=== PATIENT | female | born 1995 | race Caucasian/White ===

== ENCOUNTER → 2018-02-04 | Outpatient (CLI) | payer OTHER ==
--- NOTE | 2018-02-04 17:29 | Diagnostic Imaging Report ---
INDICATION: survey. TECHNIQUE: Multiple real-time grayscale images were obtained over the gravid uterus. COMPARISON: None. FINDINGS: There is a single live fetus in a transverse presentation. Placenta is posterior and low lying. The placenta appears to be in close proximity to the internal cervical os, suggestive of previa. Cervical length is 4.6 cm. Amniotic fluid volume is normal. heart rate is recorded at 149 beats per minute. survey demonstrates kidneys, bladder, and stomach to be unremarkable. brain is unremarkable. There is a three-vessel cord with normal cord insertion. Four-chamber heart view as well as spine are not well seen on today's study, perhaps owing to position. Biometrical measurements are as follows: Biparietal 4.66 cm, age 20 weeks 1 days. Head circumference 17.81 cm, age 20 weeks 2 days. Abdominal circumference 14.98 cm, age 20 weeks 2 days. Femur length 3.15 cm, age 19 weeks 6 days. Sonographic estimate age: 20 weeks 1 days. Sonographic estimated date of delivery: 06/23/18. Estimated Weight: 329 gm (+/- 48 gm). LMP percentile: 48%. heart rate: 149 beats per minute. number: 1 of 1. IMPRESSION: Single live IUP at approximately 20 weeks gestational age with estimated date of confinement sonographically of 06/23/2018. Four-chamber heart view and spine are not well visualized due to position. Followup is recommended. In addition, there are findings consistent with placenta previa and followup would be recommended at that time as well. Dictated by: Dictated on workstation # [id number]
== END ==
LOC: RAD 15:58
PROVIDERS: ATTEND Obstetrics & Gynecology
DX: Z36.89 Encounter for other specified antenatal screening (principal); Z3A.20 20 weeks gestation of pregnancy
CPT/HCPCS: 76805

== ENCOUNTER 2018-03-13 00:55 | Inpatient (IN) | payer OTHER ==
[~2018-03-13] VITALS: Ht 170.2 cm; Wt 78.5 kg
[2018-03-13] MEDS ORDERED: PREN1TAB79 PO (01:14)
[2018-03-13] MEDS ORDERED: D5 LR IV SOLUTION 1,000 ML IV ONE (01:15)
[2018-03-13] MEDS ORDERED: BETAMETHASONE ACE/NA PHOS 6 MG/ML (CELESTONE SOLUSPAN) ONE (01:15)
[2018-03-13] MEDS: D5 1/2 NS 1000 ML IV SOLUTION 1,000 ML IV SCH ×2 (01:20→08:51)
[2018-03-13 01:30] VITALS: BP 177/93
[2018-03-13] MEDS ORDERED: BETAMETHASONE ACE/NA PHOS 6 MG/ML (CELESTONE SOLUSPAN) IM SCH (01:30)
[2018-03-13] MEDS ORDERED: LACTATED RINGERS 2,000 ML IV ONE (01:35)
[2018-03-13] MEDS ORDERED: CITRIC ACID/SOB CIT (BICITRA) 30 ML UDC ONE (01:35)
[2018-03-13] MEDS ORDERED: METOCLOPRAMIDE INJ 10 MG/2 ML (REGLAN) ONE (01:35)
[2018-03-13] MEDS ORDERED: FAMOTIDINE 20MG/2ML IV (PEPCID) ONE (01:36)
[2018-03-13 01:40] LABS: BASOPHILS % (AUTO) 0 % (0-10); EOSINOPHILS # (AUTO) 0.2 10^3/uL (0.0-0.3); EOSINOPHILS % (AUTO) 1 % (0-10); HEMATOCRIT 33 % (35-52); HEMOGLOBIN 11.4 G/DL (11.5-16.0); LYMPHOCYTES # (AUTO) 3.2 X 10^3 (1.0-4.0); LYMPHOCYTES % (AUTO) 22 % (12-44); MEAN CORPUSCULAR HEMOGLOBIN 28 PG (25-34); MEAN CORPUSCULAR HGB CONC 34 G/DL (32-36); MEAN CORPUSCULAR VOLUME 82 FL (80-99); MEAN PLATELET VOLUME 10.1 FL (7.4-10.4); MONOCYTES # (AUTO) 1.2 X 10^3 (0.0-1.0); MONOCYTES % (AUTO) 8 % (0-12); NEUTROPHILS # (AUTO) 9.8 X 10^3 (1.8-7.8); NEUTROPHILS % (AUTO) 68 % (42-75); PLATELET COUNT 270 10^3/uL (130-400); RED BLOOD COUNT 4.06 10^6/uL (4.35-5.85); RED CELL DISTRIBUTION WIDTH 12.9 % (10.0-14.5); WHITE BLOOD COUNT 14.4 10^3/uL (4.3-11.0)
[2018-03-13] MEDS ORDERED: ceFAZolin 1,000 MG/10 ML (ANCEF) VIAL ONE (01:40)
[2018-03-13] MEDS ORDERED: NS (IVPB) 50 ML ONE (01:41)
--- OUTSIDE RECORDS SUMMARY | 2018-03-13 01:50 | XMS REPORT | Continuity of Care Document ---
Author Author [facility] Organization [facility] Address Unknown Phone Unavailable Allergies Active Description Code Type Severity Reaction Onset Reported/Identified Relationship to Patient Clinical Status Yes NO KNOWN DRUG ALLERGIES UNKNOWN NO KNOWN DRUG ALLERG Yes No Known Drug Allergies [id number] Drug Allergy Unknown N/A 03/13/2018 Medications There is no data. Problems Date Dx Coded Attending Type Code Diagnosis Diagnosed By 11/01/2017 Lance Velásquez 640.93 UNSPECIFIED HEMORRHAGE IN EARLY , ANTEPARTUM CONDITION OR COMPLICATION 11/01/2017 Lance Velásquez O20.9 HEMORRHAGE IN EARLY , UNSPECIFIED 02/03/2018 JYOTSNA NIELSON APRN Ot 785.2 CARDIAC MURMURS NEC 02/05/2018 KENJI CUMMINS DO Ot Z36.89 ENCOUNTER FOR OTHER SPECIFIED 02/05/2018 KENJI CUMMINS DO Ot Z3A.20 20 WEEKS GESTATION OF 02/23/2018 KENJI CUMMINS DO Ot Z36.89 ENCOUNTER FOR OTHER SPECIFIED 02/23/2018 KENJI CUMMINS DO Ot Z3A.20 20 WEEKS GESTATION OF Procedures There is no data. Results Test Result Range Urinalysis - 10/31/17 23:50 Icotest N/A Negative Urine Volume Urine Volume Sufficient (10mL) Urine-Appearance Slightly Cloudy Clear Urine-Bacteria Rare Urine-Bilirubin Negative Negative Urine-Blood 2+ Negative Urine-Color Yellow Colorless-Lt. Yellow Urine-Epithelial Cells 5-10/HPF Urine-Glucose Negative Negative Urine-Ketones Negative Negative Urine-Leukocytes 1+ Negative Urine-Nitrite Negative Negative Urine-Other Urine Saved if Culture Needed (48hrs from time of collection) Urine-pH 6.0 5-8.5 Urine-Protein Negative Negative Urine-RBC 0-3/HPF Urine-Specific [place] <=1.005 1.000-1.030 Urine-WBC 5-10/HPF Urobilinogen 0.2 0.2-1.0 Beta HCG - 11/01/17 00:15 Beta HCG 75214 mIU/mL 5-25 Complete blood count (CBC) with automated white blood cell (WBC) differential - 03/13/18 01:25 Blood leukocytes automated count (number/volume) 14.4 10*3/uL 4.3-11.0 Blood erythrocytes automated count (number/volume) 4.06 10*6/uL 4.35-5.85 Venous blood hemoglobin measurement (mass/volume) 11.4 g/dL 11.5-16.0 Blood hematocrit (volume fraction) 33 % 35-52 Automated erythrocyte mean corpuscular volume 82 [foz_us] 80-99 Automated erythrocyte mean corpuscular hemoglobin (mass per erythrocyte) 28 pg 25-34 Automated erythrocyte mean corpuscular hemoglobin concentration measurement ( mass/volume) 34 g/dL 32-36 Automated erythrocyte distribution width ratio 12.9 % 10.0-14.5 Automated blood platelet count (count/volume) 270 10*3/uL 130-400 Automated blood platelet mean volume measurement 10.1 [foz_us] 7.4-10.4 Automated blood neutrophils/100 leukocytes 68 % 42-75 Automated blood lymphocytes/100 leukocytes 22 % 12-44 Blood monocytes/100 leukocytes 8 % 0-12 Automated blood eosinophils/100 leukocytes 1 % 0-10 Automated blood basophils/100 leukocytes 0 % 0-10 Blood neutrophils automated count (number/volume) 9.8 10*3 1.8-7.8 Blood lymphocytes automated count (number/volume) 3.2 10*3 1.0-4.0 Blood monocytes automated count (number/volume) 1.2 10*3 0.0-1.0 Automated eosinophil count 0.2 10*3/uL 0.0-0.3 Automated blood basophil count (count/volume) 0.0 10*3/uL 0.0-0.1 Encounters ACCT No. Visit Date/Time Discharge Status Pt. Type Provider Facility Loc./Unit Complaint [id number] 02/04/2018 15:58:00 02/04/2018 23:59:59 CLS Outpatient KENJI CUMMINS DO [facility] RAD Z3A.18 18 WEEKS GESTATION [id number] 10/20/2012 14:36:00 10/20/2012 23:59:59 CLS Outpatient JYOTSNA NIELSON APRN [facility] CARD HEART MURMUR [id number] 03/13/2018 01:47:00 ACT Inpatient SHIRA STEIN DO [facility] LDRP LOSS OF FLUIDS,PREMATURE OF BABY [id number] 02/04/2017 09:55:00 02/04/2017 23:59:59 [facility] [id number] 10/31/2017 23:38:00 11/01/2017 01:33:00 DIS Outpatient [facility] ER
--- NOTE | 2018-03-13 01:54 | History & Physical-OB ---
OB - Chief Complaint & HPI Date/Time Date of Admission: Date of Admission: 03/13/2018 Date seen by a Provider: Mar 13, 2018 Time Seen by a Provider: 01:35 Chief Complaint/History OB-Reason for Admission/Chief: Rupture of Membranes Hx : 1 Hx Para: 0 Expected Date of Delivery: Jun 24, 2018 Gestational Age in Weeks: 25 Gestational Age in Days: 2 Other reason for admission: This 22 yo female is a patient of my partner Dr. Lugo, who has had an uncomplicated until this point. Reports having a stomach ache around 11pm, went to restroom, and heard a pop with a gush of fluid followed by profuse bleeding. She was scanned with US bedside and found to have a breech presentation by an assumed male infant. SVE and SSE performed found a dialated cervix to 4 cm with footling palpated by not prolapsed from the cervix. Called OR crew for emergency as well as [facility] unit for transfer at . Admission Nurse Assessment Rev: Yes History of Labs O pos Antibody neg RI RPR NR HBsAg NR HIV NR GC neg GBS unknown Allergies and Home Medications Allergies Coded Allergies: No Known Drug Allergies (Unverified , 03/13/18) Home Medications Vit W-Ca,Fe,FA(<1 mg) 1 Each Tablet, 1 EACH PO DAILY, (Reported) Patient Home Medication List Home Medication List Reviewed: Yes OB - History Hx of Present Care: Yes Ultrasounds: Normal mid trimester US Obstetrical Complications: None Medical Complications: None Patient Past Medical History n/a Social History/Family History Recent Infectious Disease Expo: No OB - Admission Exam Physical Exam HEENT: NCAT Heart: Rhythm Normal Lungs: Clear Abdomen: Gravid Extremities: Normal Reflexes: Normal Cervical Dilatation: 4cm Effacement: 100% Station: -1 Membranes: Ruptured Amniotic Fluid: Other (bloody) Heart Rate: 150's Decelerations: Variable Decelerations Short Term Variability: Present Fpc Variability: Minimal (3-5) Contractions on Admission: >10 Minutes Apart Intensity: Mild Labs Laboratory Tests Test 03/13/18 01:25 Range/Units White Blood Count 14.4 H 4.3-11.0 10^3/uL Red Blood Count 4.06 L 4.35-5.85 10^6/uL Hemoglobin 11.4 L 11.5-16.0 G/DL Hematocrit 33 L 35-52 % Mean Corpuscular Volume 82 80-99 FL Mean Corpuscular Hemoglobin 28 25-34 PG Mean Corpuscular Hemoglobin Concent 34 32-36 G/DL Red Cell Distribution Width 12.9 10.0-14.5 % Platelet Count 270 130-400 10^3/uL Mean Platelet Volume 10.1 7.4-10.4 FL Neutrophils (%) (Auto) 68 42-75 % Lymphocytes (%) (Auto) 22 12-44 % Monocytes (%) (Auto) 8 0-12 % Eosinophils (%) (Auto) 1 0-10 % Basophils (%) (Auto) 0 0-10 % Neutrophils # (Auto) 9.8 H 1.8-7.8 X 10^3 Lymphocytes # (Auto) 3.2 1.0-4.0 X 10^3 Monocytes # (Auto) 1.2 H 0.0-1.0 X 10^3 Eosinophils # (Auto) 0.2 0.0-0.3 10^3/uL Basophils # (Auto) 0.0 0.0-0.1 10^3/uL OB - Assessment/Plan/Diagnosis Assessment Assessment: labor Admission Dx 22 yo @ 25.2 Breech presentation Premature ROM Placental Abruption Advanced cervical dilatation Admission Status: Inpatient Order (span 2 midnights) Reason for Inpatient Admission: 22 yo @ 25.2 Breech presentation Premature ROM Placental Abruption Advanced cervical dilatation Plan Plan: Section Other Plan Primary classical section SHIRA STEIN DO Mar 13, 2018 1:54 am
[2018-03-13] MEDS ORDERED: fentaNYL INJECTION 100 MCG/2 ML AMP ONE (02:02)
[2018-03-13] MEDS ORDERED: morphine INJ 10 MG/ML 1ML (SYR OR VIAL) ONE (02:18)
[2018-03-13] MEDS ORDERED: HYDROmorphone 2 MG/ML VIAL (DILAUDID) ONE (02:19)
[2018-03-13] MEDS ORDERED: LACTATED RINGERS 1,000 ML IV ONE (02:21)
[2018-03-13] MEDS ORDERED: proPOfol 200 MG/20 ML (DIPRIVAN) VIAL IV ONE (02:21)
[2018-03-13] MEDS ORDERED: SEVOFLURANE (ULTANE) 15 ML INHAL SOLN ONE ×2 (02:21→03:00)
[2018-03-13] MEDS ORDERED: OXYTOCIN/NORMAL SALINE 500 ML IV ONE ×2 (02:21→02:28)
[2018-03-13] MEDS ORDERED: LIDOCAINE PF 2% 5 ML (XYLOCAINE) VIAL ONE (02:21)
[2018-03-13] MEDS ORDERED: KETOROLAC 30 MG/ML VIAL ONE (02:23)
[2018-03-13] MEDS ORDERED: HYDROmorphone 2 MG/ML VIAL (DILAUDID) IV ONE (02:30)
[2018-03-13] MEDS ORDERED: ONDANSETRON 4 MG/2 ML (SDV) Z0FRAN IVP PRN (02:30)
[2018-03-13] MEDS ORDERED: morphine INJ 10 MG/ML 1ML (SYR OR VIAL) IVP ONE (02:30)
[2018-03-13] MEDS ORDERED: MEPERIDINE (DEMEROL) INJ 50 MG/ML IVP ONE (02:30)
[2018-03-13] MEDS ORDERED: OXYTOCIN/NORMAL SALINE 500 ML IV SCH (03:09)
--- NOTE | 2018-03-13 03:12 | Discharge Inst-Women's Service ---
Discharge Inst-Women's Serv Depart Medication/Instructions New, Converted or Re-Newed RX: RX on Chart Consults/Follow Up Additional Follow Up: Yes Orders/Referrals Dr. Agarwal in 7-10 days, Dr. Lugo in 6 weeks Activity Activity: Activity as Tolerated Driving Instructions: No Driving for 1 Week NO SMOKING: NO SMOKING Nothing Inside Vagina: No Douching, No [place], No Tampons Diet Discharge Diet: No Restrictions Symptoms to Report to : Bleeding Excessive, Pain Increased, Fever Over 101 Degrees F, Vaginal Bleeding Increase, Questions/Concerns For Any Problems or Questions: Contact Your Physician Skin/Wound Care Infection Signs and Symptoms: Increased Redness, Foul Odor of Wound, Increased Drainage, Skin Itchy or Has a Rash, Increased Swelling, Temperature Above 101 F Operative Area Clean and Dry: Keep Incision Clean/Dry Stitches/[place]/Dermabond: Dermabond, Care of Stitches Bathing Instructions: SHIRA Perez DO Mar 13, 2018 3:12 am
[2018-03-13] MEDS ORDERED: IBUP-844 PO (03:13)
[2018-03-13] MEDS ORDERED: DOCU100C37 PO (03:13)
[2018-03-13] MEDS ORDERED: ACHD5005 PO (03:13)
[2018-03-13] MEDS: KETOROLAC 30 MG/ML VIAL IVP SCH ×4 (03:15→21:06)
[2018-03-13] MEDS ORDERED: TETANUS,DIPTH,PERTUSS P/F (BOOSTRIX) 0.5 ML VIAL IM SCH (03:15)
[2018-03-13] MEDS ORDERED: MEASLES,MUMPS,RUBELLA 1 EA INJ SC SCH (03:15)
[2018-03-13] MEDS ORDERED: HYDROmorphone 2 MG/ML VIAL (DILAUDID) IV PRN (03:15)
[2018-03-13 04:23] VITALS: BP 136/84
[2018-03-13] MEDS: HYDROcodone/APAP 5 MG/325 MG (LORTAB) TAB PO PRN ×4 (04:23→19:43)
[2018-03-13] MEDS ORDERED: LACTATED RINGERS 1,000 ML IV PRN (04:26)
[2018-03-13] MEDS ORDERED: CITRIC ACID/SOB CIT (BICITRA) 30 ML UDC PO ONE (04:30)
[2018-03-13] MEDS ORDERED: METOCLOPRAMIDE INJ 10 MG/2 ML (REGLAN) IV ONE (04:30)
--- NOTE | 2018-03-13 04:33 | OPERATIVE REPORT ---
DATE OF SERVICE: PREOPERATIVE DIAGNOSES: 1. A 22-year-old G1, P0, at 25 weeks and 2 days' gestation. 2. Premature rupture of membranes. 3. Suspected placental abruption. 4. Advanced cervical dilatation. 5. Breech presentation. POSTOPERATIVE DIAGNOSES: 1. A 22-year-old G1, P0, at 25 weeks and 2 days' gestation. 2. Premature rupture of membranes. 3. Suspected placental abruption. 4. Advanced cervical dilatation. 5. Breech presentation. PROCEDURE: Primary classical section emergency. SURGEON: David Stein DO ANESTHESIA: General endotracheal. ESTIMATED BLOOD LOSS: 600 mL. URINE OUTPUT: 150 mL, clear at the end of the procedure. FLUIDS: 1200 mL of lactated Ringer's resolution. FINDINGS: Live male infant, weight and Apgars pending. Grossly normal appearing uterus, fallopian tubes and ovaries for gestational age. SPECIMENS SENT: Placenta. INDICATIONS FOR PROCEDURE: This 22-year-old female presented to the hospital via emergency due to heavy amount of bleeding. She reports hearing a pop while trying to pass a bowel movement at home and having a gush of fluid, that gush of fluid was followed by a significant amount of bleeding. She then presented to the hospital with this bleeding, at which point I was notified and presented to the hospital emergently. Scanned via ultrasound for position, which was found to be a footling breech. I also did a sterile speculum examination, which revealed advanced cervical dilatation with significant amounts of bleeding and clots coming from the cervix. On digital examination, she was found to be 4 to 5 cm dilated and foot and buttocks were palpated on digital exam. The patient was not stable for transfer to a higher level of acuity center. Therefore, I discussed with the patient and her family proceeding emergently with delivery. Risks were briefly reviewed and consent was obtained and the patient was taken to the operating room. OPERATIVE REPORT IN DETAIL: Once in the operating room, general anesthesia was found to be adequate. She was placed in the supine position with leftward tilt, prepped and draped in normal sterile fashion. Once she was prepped and draped, anesthesia gives me the okay to proceed. Once she is intubated and an airway was secured, I then make a Pfannenstiel skin incision with a knife and carried this down to the underlying fascia using the knife. The fascial incision extended laterally using traction, which allows me to separate the rectus muscles down the midline using traction. I then identified the peritoneum entered bluntly and extended the incision of the peritoneal opening using blunt traction. An Hiren ring retractor was placed within the peritoneal incision, which offers excellent lateral sidewall retraction. I make a classical incision down the midline of the uterus using the knife until membranes were encountered ,at which point I extended the incision superiorly using bandage scissors. The infant was found in the footling breech presentation and it was elevated up out of the pelvis and brought up onto the operative field where the cord was doubly clamped and cut and was handed off to Dr. Carrington, who was present for delivery. Cord blood was attempted to be collected; however, there is not much blood in the cord noted. A 3-vessel cord with intact placenta was delivered spontaneously thereafter. IV Pitocin was initiated to facilitate uterine contraction. Uterine fundus became firmer by bimanual massage. The uterus was exteriorized and cleared of endometrial clots and debris. I then closed the uterus in three layers. The inner layer was closed using 0 Vicryl suture in a running locked fashion. Second layer was closed using 0 Monocryl in imbricating running suture and the third layer, which reapproximate the serosa is reapproximated using 0 Monocryl in a running fashion, after which there was no active bleeding noted from the uterus or any of my dissection planes. I then placed the uterus back from the pelvis and copiously irrigated the pelvis using normal saline. Once again, there was no active bleeding noted from any of my dissection planes. I placed Interceed antiadhesive over my low transverse incision and proceeded with closing the peritoneum using 3-0 Vicryl suture in an interrupted fashion. Rectus muscle reapproximated using 3-0 Vicryl suture in interrupted fashion. The fascia was reapproximated using 0 Vicryl suture in running fashion. Subcutaneous tissue was reapproximated using 3-0 plain in interrupted subcutaneous stitch. The skin was reapproximated using 4-0 Monocryl in a running subcuticular. Dermabond was applied to incision and sterile dressing with adhesive white tape. The patient tolerated the procedure well and was taken to recovery area in stable condition. Lap and sponge count was correct at the end of the procedure. Instrument counts correct as well. One gram of Ancef given preoperatively for infection prophylaxis. Job ID: [id number] DocumentID: [id number] Dictated Date: 03/13/2018 03:09:14 Inhalation Therapy Aides Teacher Date: 03/13/2018 04:32:33 Dictated By: DAVID STEIN DO
[2018-03-13] MEDS ORDERED: ceFAZolin INJECTION 1,000 MG in NS (IVPB) 50 ML IV ONE (04:45)
[2018-03-13] MEDS ORDERED: FAMOTIDINE 20MG/2ML IV (PEPCID) IVP ONE (04:45)
[2018-03-13] MEDS ORDERED: CATHETER FLUSH 10 ML SYR IV SCH (06:00)
[2018-03-13 06:25] VITALS: BP 135/82
[2018-03-13] MEDS: DOCUSATE SODIUM 100 MG (COLACE) CAP PO SCH ×2 (08:51→19:42)
[2018-03-13 08:54] VITALS: BP 119/72
[2018-03-13 15:07] VITALS: BP 121/73
[2018-03-13 19:45] VITALS: BP 130/73
[2018-03-14] MEDS: HYDROcodone/APAP 5 MG/325 MG (LORTAB) TAB PO PRN ×2 (00:39→09:54)
[2018-03-14 03:06] VITALS: BP 110/59
[2018-03-14] MEDS: IBUPROFEN 600 MG (MOTRIN) TAB PO SCH ×2 (03:06→09:08)
[2018-03-14 05:33] LABS: BASOPHILS % (AUTO) 0 % (0-10); EOSINOPHILS % (AUTO) 0 % (0-10); HEMATOCRIT 23 % (35-52); HEMOGLOBIN 7.5 G/DL (11.5-16.0); LYMPHOCYTES # (AUTO) 2.1 X 10^3 (1.0-4.0); LYMPHOCYTES % (AUTO) 13 % (12-44); MEAN CORPUSCULAR HEMOGLOBIN 28 PG (25-34); MEAN CORPUSCULAR HGB CONC 33 G/DL (32-36); MEAN CORPUSCULAR VOLUME 85 FL (80-99); MEAN PLATELET VOLUME 10.2 FL (7.4-10.4); MONOCYTES # (AUTO) 1.5 X 10^3 (0.0-1.0); MONOCYTES % (AUTO) 9 % (0-12); NEUTROPHILS % (AUTO) 78 % (42-75); PLATELET COUNT 257 10^3/uL (130-400); RED BLOOD COUNT 2.71 10^6/uL (4.35-5.85); RED CELL DISTRIBUTION WIDTH 12.8 % (10.0-14.5); WHITE BLOOD COUNT 16.6 10^3/uL (4.3-11.0)
[2018-03-14] MEDS ORDERED: ceFAZolin INJECTION 1,000 MG in NS (IVPB) 50 ML IV ONE ×2 (08:00→08:45)
--- NOTE | 2018-03-14 08:02 | Postpartum Progress Note ---
Note Note Day # 1 Subjective: Patient is without complaints. Ambulating, voiding. Tolerating a regular diet without nausea or vomiting. Normal lochia. Pain is well controlled with oral pain medications. Denies lightheadedness dizziness on ambulation. She would like to have an expedited dismissal due to at [place] in NICU. Objective: Vital Sign - Last 24 Hours 03/13/18 03/13/18 03/13/18 03/13/18 08:54 15:07 19:45 21:24 Temp 98.0 98.0 99.6 98.6 Pulse 98 111 95 Resp 18 18 18 B/P (MAP) 119/72 (88) 121/73 (89) 130/73 (92) Pulse Ox 98 98 99 O2 Delivery Room Air Room Air 03/14/18 03/14/18 00:40 03:06 Temp 99.1 98.1 Pulse 106 Resp 18 B/P (MAP) 110/59 (76) Pulse Ox 100 O2 Delivery Room Air Intake and Output 03/13/18 03/13/18 03/14/18 15:00 23:00 07:00 Intake Total 600 ml 800 ml Balance 600 ml 800 ml Physical Exam: General - Alert and oriented, no apparent distress Abdomen - Soft, appropriately tender to palpation, non-distended, fundus firm at umbilicus Extremities - no edema, negative Imani's bilaterally Incision- c/d/i Assessment: POD 1 Classical section 25 week delivery Cervical insufficiency Possible placental abruption-path pending Acute blood loss anemia Leukocytosis Plan: Since patient is anxious for dismissal, I am dosing again with Ancef 1 gm due to mild leukocytosis and temp of 99. She was counciled about follow up and planning for future pregnancies. Encourage ambulation. Ferrous sulfate supplementation. Plan for discharge today Vitals - Labs Vital Signs - I&O Vital Signs Date Time Temp Pulse Resp B/P (MAP) Pulse Ox O2 Delivery O2 Flow Rate FiO2 03/14/18 03:06 98.1 106 18 110/59 (76) 100 Room Air 03/14/18 00:40 99.1 03/13/18 21:24 98.6 03/13/18 19:45 99.6 95 18 130/73 (92) 99 Room Air 03/13/18 15:07 98.0 111 18 121/73 (89) 98 Room Air 11/3/18 08:54 98.0 98 18 119/72 (88) 98 I & O 03/14/18 07:00 Intake Total 1400 ml Balance 1400 ml Labs Laboratory Tests 03/14/18 05:18: White Blood Count 16.6H, Red Blood Count 2.71L, Hemoglobin 7.5#L, Hematocrit 23L , Mean Corpuscular Volume 85, Mean Corpuscular Hemoglobin 28, Mean Corpuscular Hemoglobin Concent 33, Red Cell Distribution Width 12.8, Platelet Count 257, Mean Platelet Volume 10.2, Neutrophils (%) (Auto) 78H, Lymphocytes (%) (Auto) 13 , Monocytes (%) (Auto) 9, Eosinophils (%) (Auto) 0, Basophils (%) (Auto) 0, Neutrophils # (Auto) 13.0H, Lymphocytes # (Auto) 2.1, Monocytes # (Auto) 1.5H, Eosinophils # (Auto) 0.0, Basophils # (Auto) 0.0 SHIRA STEIN DO Mar 14, 2018 08:02
[2018-03-14 09:08] VITALS: BP 113/60
[2018-03-14] MEDS: DOCUSATE SODIUM 100 MG (COLACE) CAP PO SCH (09:08)
--- NOTE | 2018-03-14 11:52 | Anesthesia-General Post-Op ---
General Patient Condition Mental Status/LOC: Same as Preop Cardiovascular: Satisfactory Nausea/Vomiting: Absent Respiratory: Satisfactory Pain: Controlled Complications: Absent Post Op Complications Complications None Follow Up Care/Instructions Patient Instructions None needed. Anesthesia/Patient Condition Patient Condition Patient is doing well, no complaints, stable vital signs, no apparent adverse anesthesia problems. No complications reported per nursing. TRINIDAD CHADWICK CRNA Mar 14, 2018 11:52
--- NOTE | 2018-03-17 11:09 | Physician Query-Final Dx ---
JESUS MANUEL MONROE 03/17/18 1108: Final Diagnosis Give Final Diagnosis Please give Final Diagnosis SHIRA STEIN DO 03/17/18 1529: Final Diagnosis Give Final Diagnosis POD 1 Classical c section\ 25 week breech PTL Acute blood loss anemia JESUS MANUEL MONROE Mar 17, 2018 11:08 SHIRA STEIN DO Mar 17, 2018 15:29
== END 2018-03-14 10:55 | disposition home or self-care (01) | DRG 786 ==
LOC: WSo 00:55 → LDRP 00:56 → WSo 01:46 → LDRP 01:47
PROVIDERS: ADMIT Obstetrics & Gynecology; ATTEND Obstetrics & Gynecology
PROC: 10D00Z0 Extraction of Products of Conception, High, Open Approach (ICD-10-PCS; principal; 2018-03-13 02:03)
DX: O42.012 Preterm premature rupture of membranes, onset of labor within 24 hours of rupture, second trimester (principal); O45.92 Premature separation of placenta, unspecified, second trimester; O64.8XX0 Obstructed labor due to other malposition and malpresentation, not applicable or unspecified; O34.32 Maternal care for cervical incompetence, second trimester; O90.81 Anemia of the puerperium; D62 Acute posthemorrhagic anemia; O99.112 Other diseases of the blood and blood-forming organs and certain disorders involving the immune mechanism complicating pregnancy, second trimester; D72.829 Elevated white blood cell count, unspecified; Z3A.25 25 weeks gestation of pregnancy; Z37.0 Single live birth
CPT/HCPCS: 36415; 85025; 86850; 86900; 86901; 88305; 94664; 99212

== ENCOUNTER → 2019-05-05 | Outpatient (CLI) | payer OTHER ==
[~2019-05-05] MED LIST: ACHD5005 PO; DOCU100C37 PO; IBUP-844 PO; PREN1TAB79 PO
--- NOTE | 2019-05-05 12:54 | Diagnostic Imaging Report ---
PROCEDURE: US Non-ob pelvis comp/trans. TECHNIQUE: Multiple real-time grayscale images were obtained of the pelvis in various projections endovaginally. Transabdominal imaging was also performed. INDICATION: Vaginal bleeding. Patient has a negative test. FINDINGS: The uterus is anteverted measuring 8.3 x 4.3 x 5.5 cm. Endometrium is approximately 11 mm in thickness. No myometrial mass is identified. The right ovary measures 3.6 x 3.1 x 4.6 cm and the left ovary measures 3.7 x 2.5 x 3.2 cm. The ovaries contain small follicles. There is blood flow to both ovaries. No adnexal mass or free fluid is detected. IMPRESSION: Unremarkable pelvic ultrasound. Dictated by: Dictated on workstation # [id number]
== END ==
LOC: RAD 11:33
PROVIDERS: ATTEND Obstetrics & Gynecology
DX: N93.8 Other specified abnormal uterine and vaginal bleeding (principal)
CPT/HCPCS: 76830; 76856

== ENCOUNTER → 2019-08-01 | Outpatient (CLI) | payer OTHER ==
[2019-08-01 11:25] LABS: BASOPHILS # (AUTO) 0.1 10^3/uL (0.0-0.1); BASOPHILS % (AUTO) 1 % (0-10); EOSINOPHILS # (AUTO) 0.1 10^3/uL (0.0-0.3); EOSINOPHILS % (AUTO) 2 % (0-10); HEMATOCRIT 34 % (35-52); HEMOGLOBIN 10.7 G/DL (11.5-16.0); LYMPHOCYTES # (AUTO) 1.7 X 10^3 (1.0-4.0); LYMPHOCYTES % (AUTO) 27 % (12-44); MEAN CORPUSCULAR HEMOGLOBIN 22 PG (25-34); MEAN CORPUSCULAR HGB CONC 31 G/DL (32-36); MEAN CORPUSCULAR VOLUME 71 FL (80-99); MEAN PLATELET VOLUME 9.9 FL (7.4-10.4); MONOCYTES # (AUTO) 0.6 X 10^3 (0.0-1.0); MONOCYTES % (AUTO) 9 % (0-12); NEUTROPHILS # (AUTO) 3.9 X 10^3 (1.8-7.8); NEUTROPHILS % (AUTO) 61 % (42-75); PLATELET COUNT 327 10^3/uL (130-400); RED CELL DISTRIBUTION WIDTH 14.5 % (10.0-14.5); WHITE BLOOD COUNT 6.3 10^3/uL (4.3-11.0)
--- NOTE | 2019-08-01 11:42 | Diagnostic Imaging Report ---
INDICATION: Cough, fever. COMPARISON: 02/16/2007 TECHNIQUE: Frontal and lateral radiograph of chest dated 08/01/2019. FINDINGS: The cardiac silhouette is within normal limits in size. No significant pulmonary vascular congestion. Mild opacities are noted within the lingula. Otherwise, the lungs appear clear. No pleural effusion. No pneumothorax. No acute osseous abnormality. IMPRESSION: Mild lingular atelectasis and/or infiltrate. Dictated by: Dictated on workstation # [id number]
== END ==
LOC: RAD 11:04
PROVIDERS: ATTEND Nurse Practitioner Family
DX: J02.9 Acute pharyngitis, unspecified (principal); R50.9 Fever, unspecified; R06.00 Dyspnea, unspecified
CPT/HCPCS: 36415; 71046; 85025; 86308

== ENCOUNTER → 2019-11-29 | Outpatient (CLI) | payer OTHER ==
--- NOTE | 2019-11-29 16:40 | Diagnostic Imaging Report ---
PROCEDURE: US Non-ob pelvis comp/trans. TECHNIQUE: Multiple Real-time grayscale images were obtained of the pelvis in various projections endovaginally. Transabdominal imaging was also performed. INDICATION: Secondary amenorrhea. FINDINGS: Color Doppler blood flow to the adnexa is confirmed bilaterally. The right ovary is prominent measuring 4.0 x 3.6 x 3.0 cm. The left ovary is prominent measuring 4.1 x 3.0 x 3.7 cm. There are multiple similar sized follicles arranged predominantly peripherally in the ovaries. Polycystic ovarian syndrome could not be excluded in the appropriate clinical scenario. No fibroid or myometrial mass. The endometrial thickness is 6 mm. No pelvic ascites. IMPRESSION: Somewhat prominent ovaries with no adnexal torsion and similar subcentimeter peripherally arrayed ovarian follicles and, given the history, raising the question of polycystic ovarian disease. Correlate clinically. Dictated by: Dictated on workstation # [id number]
== END ==
LOC: RAD 15:07
PROVIDERS: ATTEND Obstetrics & Gynecology
DX: N91.1 Secondary amenorrhea (principal)
CPT/HCPCS: 76830; 76856

== ENCOUNTER 2022-09-26 08:37 | Emergency (ER) | payer BC, OTHER ==
[~2022-09-26] VITALS: Ht 170 cm; Wt 68.0 kg
--- NOTE | 2022-09-26 09:15 | ED GU-Female ---
General Chief Complaint: OB < 20 WEEKS Stated Complaint: POSS MISCARRIAGE/VAG BLEEDING LIGHTHEADED/DIZZY Nursing Triage Note: PT AMB TO RM 5 PT CO OF VAGINAL BLEEDING LARGE AMT 3 PADS SINCE 0730 THIS AM. PT LMP 07/02/22. Source: patient Exam Limitations: no limitations History of Present Illness Date Seen by Provider: September 26, 2022 Time Seen by Provider: 09:10 Initial Comments Patient is a 27-year-old G2, P1 who presents to the emergency room with a chief complaint of vaginal bleeding onset this morning at about 730. Patient had previous placental abruption/PROM 4 years ago leading to a very premature delivery (25weeks) of a now healthy 5-year-old child. They spent 5 months in the NICU at [facility]. She thinks that her last menstrual cycle was sometime towards the end of June. She did have a vaginal ultrasound at the end of August which stated she was only about 4 weeks . She has been on daily progesterone supplementation. She denies fevers, chills. No diarrhea. No burning with urination. She has been very nauseous with this . No other daily medications. PNC through Dr Agarwal, anticipated cerclage at 14week [id number] bedside ultrasound does show gestational sac with obvious pole and cardiac activity. Timing/Duration: just prior to arrival (729) Severity/Quality: moderate ("clots") Activities at Onset: none Associated Symptoms: nausea/vomiting Allergies and Home Medications Allergies Coded Allergies: No Known Drug Allergies (Unverified , 03/13/18) Patient Home Medication List Home Medication List Reviewed: Yes Docusate Sodium (Docusate Sodium) 100 Mg Capsule, 100 MG PO BID PRN for CONSTIPATION-1ST LINE Prescribed by: SHIRA AGARWAL on 03/13/18312 Hydrocodone Bit/Acetaminophen (Lortab 5 Mg Tablet) 1 Tab Tab, 1-2 TAB PO Q4H PRN for PAIN-MODERATE Prescribed by: SHIRA AGARWAL on 03/13/18312 Ibuprofen (Ibu) 600 Mg Tablet, 600 MG PO Q6H Prescribed by: SHIRA AGARWAL on 03/13/18312 Vit W-Ca,Fe,FA(<1 mg) ( Vitamins) 1 Each Tablet, 1 EACH PO DAILY, (Reported) Entered as Reported by: CHHAYA SMITH on 03/13/18 0114 Past Bqotccs-Mhtevp-Gstxeq Hx Patient Social History Tobacco Use?: No Substance use?: No Alcohol Use?: No Pt feels they are or have been: No Past Medical History Surgery/Hospitalization HX: Last Menstrual Period: Jul 02, 2022 Physical Exam Vital Signs Vital Signs - First Documented 09/26/22 08:45 Temp 36.6 Pulse 75 Resp 18 B/P (MAP) 137/94 (108) Pulse Ox 99 Capillary Refill : Less Than 3 Seconds Height, Weight, BMI Height: 5'7.00" Weight: 173lbs. 0.0oz. [id number]; 23.00 BMI Method: Progress/Results/Core Measures Suspected Sepsis SIRS Temperature: Pulse: 75 Respiratory Rate: 18 Laboratory Tests 09/26/22 09:45: White Blood Count 7.0 Blood Pressure 137 /94 Mean: 108 Laboratory Tests 09/26/22 09:45: Creatinine 0.69, Platelet Count 316 Results/Orders Lab Results Laboratory Tests Test 09/26/22 09:29 09/26/22 09:45 Range/Units Urine Color YELLOW Urine Clarity CLEAR Urine pH 6.5 5-9 Urine Specific [place] <=1.005 1.016-1.022 Urine Protein 1+ H NEGATIVE Urine Glucose (UA) NEGATIVE NEGATIVE Urine Ketones NEGATIVE NEGATIVE Urine Nitrite NEGATIVE NEGATIVE Urine Bilirubin NEGATIVE NEGATIVE Urine Urobilinogen 0.2 < = 1.0 MG/DL Urine Leukocyte Esterase TRACE H NEGATIVE Urine RBC (Auto) 3+ H NEGATIVE Urine RBC >100 H /HPF Urine WBC 0-2 /HPF Urine Squamous Epithelial Cells 0-2 /HPF Urine Crystals NONE /LPF Urine Bacteria FEW H /HPF Urine Casts NONE /LPF Urine Mucus NEGATIVE /LPF Urine Culture Indicated YES White Blood Count 7.0 4.3-11.0 10^3/uL Red Blood Count 5.12 H 3.80-5.11 10^6/uL Hemoglobin 14.1 11.5-16.0 g/dL Hematocrit 41 35-52 % Mean Corpuscular Volume 81 80-99 fL Mean Corpuscular Hemoglobin 28 25-34 pg Mean Corpuscular Hemoglobin Concent 34 32-36 g/dL Red Cell Distribution Width 12.8 10.0-14.5 % Platelet Count 316 130-400 10^3/uL Mean Platelet Volume 10.1 9.0-12.2 fL Immature Granulocyte % (Auto) 0 % Neutrophils (%) (Auto) 64 42-75 % Lymphocytes (%) (Auto) 27 12-44 % Monocytes (%) (Auto) 7 0-12 % Eosinophils (%) (Auto) 1 0-10 % Basophils (%) (Auto) 1 0-10 % Neutrophils # (Auto) 4.5 1.8-7.8 10^3/uL Lymphocytes # (Auto) 1.9 1.0-4.0 10^3/uL Monocytes # (Auto) 0.5 0.0-1.0 10^3/uL Eosinophils # (Auto) 0.1 0.0-0.3 10^3/uL Basophils # (Auto) 0.0 0.0-0.1 10^3/uL Immature Granulocyte # (Auto) 0.0 0.0-0.1 10^3/uL Sodium Level 138 135-145 MMOL/L Potassium Level 3.8 3.6-5.0 MMOL/L Chloride Level 106 98-107 MMOL/L Carbon Dioxide Level 22 21-32 MMOL/L Anion Gap 10 5-14 MMOL/L Blood Urea Nitrogen 6 L 7-18 MG/DL Creatinine 0.69 0.60-1.30 MG/DL Estimat Glomerular Filtration Rate 123 BUN/Creatinine Ratio 9 Glucose Level 86 70-105 MG/DL Calcium Level 9.5 8.5-10.1 MG/DL Serum Test, Qualitative POSITIVE NEGATIVE My Orders Orders - OLE ALEGRIA MD Cbc With Automated Diff (09/26/22 09:31) Basic Metabolic Panel (09/26/22 09:31) Hcg,Qualitative Serum (09/26/22 09:31) Ua Culture If Indicated (09/26/22 09:31) Us Ob<14 Wks Sngle W/Transvag (09/26/22 09:31) Urine Culture (09/26/22 09:29) Hcg,Quantitative (09/26/22 10:27) Vital Signs/I&O 09/26/22 08:45 Temp 36.6 Pulse 75 Resp 18 B/P (MAP) 137/94 (108) Pulse Ox 99 Capillary Refill : Less Than 3 Seconds Blood Pressure Mean: 108 Diagnostic Imaging Diagonstic Imaging: Ultrasound Comments [facility] [place], [place] NAME: TRAM HALL [facility] REC#: [id number] PT STATUS: REG ER : 1995 PHYSICIAN: OLE ALEGRIA MD ADMIT DATE: 09/26/22/ER Draft Date of Exam:09/26/22 US OB<14 WKS SNGLE W/TRANSVAG INDICATION: Bleeding. COMPARISON: None. TECHNIQUE: Transpelvic and transvaginal sonogram was performed. FINDINGS: There is a single, live intrauterine with a crown-rump length measuring 9 mm, which is consistent with a 7 week and 0-day-old fetus. heart rate was documented at 135 beats per minute. anatomy is not well seen at this early state of gestation. Gestational sac shape is appropriate. No adnexal masses are identified. There is probable corpus luteal cyst on the left that measures 2 x 1.5 x 2 cm. Otherwise, the ovaries are normal in appearance. The left ovary measures 4.1 x 2.5 x 3.5 cm, and the right measures 4.8 x 2.5 x 2.7 cm. There is no free fluid in the cul-de-sac. CLINICAL DATES: Gestational age 12 weeks and 2 days RASHID is 04/08/2023 IMPRESSION: 1. Single, live intrauterine at 7 weeks and 0 days. Estimated due date is 05/15/2023. These are discrepant with the clinical dates. Recommend re-date based on this exam. Otherwise, no acute abnormality is seen at this time. Dictated on workstation # [id number] Dict: 09/26/22 1043 Trans: 09/26/22 1047 SIMA [id number] Interpreted by: GREGORY NOYOLA MD Electronically signed by: Departure Impression Primary Impression: Threatened miscarriage in early Disposition: HOME, SELF-CARE Condition: Stable Departure-Patient Inst. Decision time for Depature: 11:15 Referrals: MARIAM ALSTON DO (PCP/Family) Primary Care Physician Patient Instructions: Threatened Miscarriage (DC) Add. Discharge Instructions: Pelvic rest until you follow-up with Dr. Agarwal. This means no sex, no tampons. No heavy lifting over 10 pounds. Continue your vitamins. Drink lots of fluids to help with constipation, eat your vegetables. If you develop sudden onset of significant worsening vaginal bleeding, significant pelvic pain or any other emergent, concerning symptoms please return to the emergency department for reevaluation. I am not sending Zofran to the pharmacy just yet I am waiting for callback from Dr. Agarwal's office to make sure that Zofran is okay with him. I will let you know if and when this prescription is sent. Scripts Ondansetron (Ondansetron Odt) 4 Mg Tab.rapdis 4 MG SL Q6H PRN for NAUSEA/VOMITING, #20 TAB not to exceed 3 tablets in a day Prov: OLE ALEGRIA MD 09/26/22 Copy Copies To 1: SHIRA AGARWAL DO Copies To 2: MARIAM ALSTON DO OLE ALEGRIA MD September 26, 2022 09:15
[2022-09-26 09:44] LABS: BILIRUBIN,URINE NEGATIVE (NEGATIVE); CLARITY,URINE CLEAR; COLOR,URINE YELLOW; GLUCOSE, URINE (UA) NEGATIVE (NEGATIVE); KETONES,URINE NEGATIVE (NEGATIVE); LEUKOCYTE ESTERASE ,URINE TRACE (NEGATIVE); NITRITE,URINE NEGATIVE (NEGATIVE); PH,URINE 6.5 (5-9); PROTEIN,URINE 1+ (NEGATIVE)
[2022-09-26 09:51] LABS: BASOPHILS % (AUTO) 1 % (0-10); EOSINOPHILS # (AUTO) 0.1 10^3/uL (0.0-0.3); EOSINOPHILS % (AUTO) 1 % (0-10); HEMATOCRIT 41 % (35-52); HEMOGLOBIN 14.1 g/dL (11.5-16.0); LYMPHOCYTES # (AUTO) 1.9 10^3/uL (1.0-4.0); LYMPHOCYTES % (AUTO) 27 % (12-44); MEAN CORPUSCULAR HEMOGLOBIN 28 pg (25-34); MEAN CORPUSCULAR HGB CONC 34 g/dL (32-36); MEAN CORPUSCULAR VOLUME 81 fL (80-99); MEAN PLATELET VOLUME 10.1 fL (9.0-12.2); MONOCYTES # (AUTO) 0.5 10^3/uL (0.0-1.0); MONOCYTES % (AUTO) 7 % (0-12); NEUTROPHILS # (AUTO) 4.5 10^3/uL (1.8-7.8); NEUTROPHILS % (AUTO) 64 % (42-75); PLATELET COUNT 316 10^3/uL (130-400)
[2022-09-26 09:58] LABS: BACTERIA,URINE FEW /HPF; RBC,URINE >100 /HPF; SQUAMOUS EPITHELIAL CELL,UR 0-2 /HPF; WBC,URINE 0-2 /HPF
[2022-09-26 10:05] LABS: POTASSIUM 3.8 MMOL/L (3.6-5.0)
[2022-09-26 10:06] LABS: CALCIUM 9.5 MG/DL (8.5-10.1)
[2022-09-26 10:10] LABS: CREATININE SERUM 0.69 MG/DL (0.60-1.30)
--- NOTE | 2022-09-26 10:48 | Diagnostic Imaging Report ---
INDICATION: Bleeding. COMPARISON: None. TECHNIQUE: Transpelvic and transvaginal sonogram was performed. FINDINGS: There is a single, live intrauterine with a crown-rump length measuring 9 mm, which is consistent with a 7 week and 0-day-old fetus. heart rate was documented at 135 beats per minute. anatomy is not well seen at this early state of gestation. Gestational sac shape is appropriate. No adnexal masses are identified. There is probable corpus luteal cyst on the left that measures 2 x 1.5 x 2 cm. Otherwise, the ovaries are normal in appearance. The left ovary measures 4.1 x 2.5 x 3.5 cm, and the right measures 4.8 x 2.5 x 2.7 cm. There is no free fluid in the cul-de-sac. CLINICAL DATES: Gestational age 12 weeks and 2 days RASHID is 04/08/2023 IMPRESSION: 1. Single, live intrauterine at 7 weeks and 0 days. Estimated due date is 05/15/2023. These are discrepant with the clinical dates. Recommend re-date based on this exam. Otherwise, no acute abnormality is seen at this time. Dictated by: Dictated on workstation # [id number]
[2022-09-26] MEDS ORDERED: ONDA4TAB11 SL (11:24)
[2022-09-26 11:27] VITALS: BP 137/94
== END 2022-09-26 11:27 | disposition home or self-care (01) ==
LOC: EDUNIT# 08:37 → ER 08:40
DX: O20.0 Threatened abortion (principal); Z79.890 Hormone replacement therapy; Z3A.01 Less than 8 weeks gestation of pregnancy
CPT/HCPCS: 36415; 76801; 76817; 80048; 81000; 84702; 84703; 85025; 87088

== ENCOUNTER 2022-10-15 16:29 | Emergency (ER) | payer BC ==
[~2022-10-15] VITALS: Ht 170.2 cm; Wt 68.0 kg
[~2022-10-15 16:29] MED LIST changes: +ONDA4TAB11 SL
--- NOTE | 2022-10-15 16:57 | ED GU-Female ---
General Chief Complaint: OB < 20 WEEKS Stated Complaint: 9 WKS PREG - VAG BLEEDING Source: patient Exam Limitations: no limitations History of Present Illness Date Seen by Provider: Oct 15, 2022 Time Seen by Provider: 16:37 Initial Comments 27-year-old female presents to the ER with reports of a lot of vaginal bleeding just prior to arrival. She is 9 weeks and 5 days . She reports that she filled the toilet with blood, and she passed some blood clots. She states that she passed a golf ball sized blood clot yesterday, and was seen by Dr. Agarwal, OB. He performed a bedside ultrasound which showed a subchronic hemorrhage. She states that she was told that the baby looked good on the ultrasound. She reports that she was seen here on 09/26/2022 for vaginal bleeding as well. Her first was delivered at 25 weeks due to placental abruption. She is complaining of abdominal cramping. Denies nausea vomiting, dysuria. She is currently taking progesterone. Allergies and Home Medications Allergies Coded Allergies: No Known Drug Allergies (Unverified , 03/13/18) Patient Home Medication List Home Medication List Reviewed: Yes Docusate Sodium (Docusate Sodium) 100 Mg Capsule, 100 MG PO BID PRN for CONSTIPATION-1ST LINE Prescribed by: SHIRA AGARWAL on 03/13/18 031 Hydrocodone Bit/Acetaminophen (Lortab 5 Mg Tablet) 1 Tab Tab, 1-2 TAB PO Q4H PRN for PAIN-MODERATE Prescribed by: SHIRA AGARWAL on 03/13/18 031 Ibuprofen (Ibu) 600 Mg Tablet, 600 MG PO Q6H Prescribed by: SHIRA AGARWAL on 03/13/18 031 Ondansetron (Ondansetron Odt) 4 Mg Tab.rapdis, 4 MG SL Q6H PRN for NAUSEA/VOMITING Prescribed by: OLE ALEGRIA on 09/26/22 1124 Vit W-Ca,Fe,FA(<1 mg) ( Vitamins) 1 Each Tablet, 1 EACH PO DAILY, (Reported) Entered as Reported by: CHHAYA SMITH on 03/13/18 0114 Review of Systems Review of Systems Constitutional: see HPI Past Rhzxcsz-Kvvmzu-Iployi Hx Patient Social History Tobacco Use?: No Smoking Status: Never a Smoker Smokeless Tobacco Frequency: Never a User Use of E-Cig and/or Vaping dev: No Use of E-Cig and/or Vaping Andres: Never a User Substance use?: No Alcohol Use?: No Pt feels they are or have been: No Past Medical History Surgery/Hospitalization HX: Physical Exam Vital Signs Vital Signs - First Documented 10/15/22 10/15/22 16:38 18:31 Temp 37.8 Pulse 20 Resp 20 B/P (MAP) 139/86 (103) Pulse Ox 100 O2 Delivery Room Air Capillary Refill : Height, Weight, BMI Height: 5'7.00" Weight: 173lbs. 0.0oz. 78.261606cx; 23.00 BMI Method: General Appearance: WD/WN, no apparent distress Neck: supple, normal inspection Cardiovascular: regular rate, rhythm Respiratory: lungs clear, normal breath sounds, no respiratory distress, no accessory muscle use Pelvic: normal external exam, vaginal bleeding (Copious amounts, several blood clots) Extremities: normal range of motion, normal inspection Neurologic/Psychiatric: alert, normal mood/affect Skin: normal color, warm/dry Progress/Results/Core Measures Suspected Sepsis SIRS Temperature: Pulse: Respiratory Rate: Laboratory Tests 10/15/22 16:52: White Blood Count 10.2 Blood Pressure / Mean: Laboratory Tests 10/15/22 16:52: Platelet Count 279 Results/Orders Lab Results Laboratory Tests Test 10/15/22 16:52 10/15/22 17:30 Range/Units White Blood Count 10.2 4.3-11.0 10^3/uL Red Blood Count 4.83 3.80-5.11 10^6/uL Hemoglobin 13.4 11.5-16.0 g/dL Hematocrit 40 35-52 % Mean Corpuscular Volume 82 80-99 fL Mean Corpuscular Hemoglobin 28 25-34 pg Mean Corpuscular Hemoglobin Concent 34 32-36 g/dL Red Cell Distribution Width 13.3 10.0-14.5 % Platelet Count 279 130-400 10^3/uL Mean Platelet Volume 10.2 9.0-12.2 fL Immature Granulocyte % (Auto) 0 % Neutrophils (%) (Auto) 62 42-75 % Lymphocytes (%) (Auto) 29 12-44 % Monocytes (%) (Auto) 7 0-12 % Eosinophils (%) (Auto) 1 0-10 % Basophils (%) (Auto) 1 0-10 % Neutrophils # (Auto) 6.3 1.8-7.8 10^3/uL Lymphocytes # (Auto) 3.0 1.0-4.0 10^3/uL Monocytes # (Auto) 0.7 0.0-1.0 10^3/uL Eosinophils # (Auto) 0.1 0.0-0.3 10^3/uL Basophils # (Auto) 0.1 0.0-0.1 10^3/uL Immature Granulocyte # (Auto) 0.0 0.0-0.1 10^3/uL Human Chorionic Gonadotropin, Quant 10274 H <5 MIU/ML Urine Color YELLOW Urine Clarity CLEAR Urine pH 5.5 5-9 Urine Specific [place] <=1.005 1.016-1.022 Urine Protein NEGATIVE NEGATIVE Urine Glucose (UA) NEGATIVE NEGATIVE Urine Ketones NEGATIVE NEGATIVE Urine Nitrite NEGATIVE NEGATIVE Urine Bilirubin NEGATIVE NEGATIVE Urine Urobilinogen 0.2 < = 1.0 MG/DL Urine Leukocyte Esterase NEGATIVE NEGATIVE Urine RBC (Auto) 3+ H NEGATIVE Urine RBC 10-25 H /HPF Urine WBC NONE /HPF Urine Squamous Epithelial Cells 5-10 /HPF Urine Crystals NONE /LPF Urine Bacteria TRACE /HPF Urine Casts NONE /LPF Urine Mucus NEGATIVE /LPF Urine Culture Indicated NO My Orders Orders - DIXON ZHU APRN Cbc With Automated Diff (10/15/22 16:36) Hcg,Quantitative (10/15/22 16:36) Ua Culture If Indicated (10/15/22 16:36) Vital Signs/I&O Capillary Refill : Progress Note : Progress Note Patient seen and evaluated, resting in bed, appears anxious, is tearful. Work- up initiated including CBC, hCG, and UA. Dr. Kitchen, obstetrics, was already aware that patient was here and came down to the ER to see her. She performed the pelvic exam and did a bedside ultrasound. The pelvic exam showed showed la rge amount of dark red blood. The ultrasound showed a fetus with a normal heartbeat. Ultrasound also showed a subchorionic hemorrhage again. This is likely the source of her bleeding. Patient's hemoglobin was 14.1 on 09/26/2022, today it is 13.4. hCG is 80,688. Urinalysis negative for infection, does show 3+ RBCs. Results discussed with patient. Discharge instructions and return precaution provided. Departure Impression Primary Impression: Subchorionic hemorrhage in first trimester Qualified Codes: O41.8X10 - Other specified disorders of amniotic fluid and membranes, first trimester, not applicable or unspecified; O46.8X1 - Other antepartum hemorrhage, first trimester Disposition: HOME, SELF-CARE Condition: Stable Departure-Patient Inst. Decision time for Depature: 18:06 Referrals: MARIAM ALSTON DO (PCP/Family) Primary Care Physician Patient Instructions: Subchorionic Bleeding Add. Discharge Instructions: Follow-up with Dr. Agarwal on Thursday as scheduled. Return for significant bleeding, if you are saturating a heavy pad once an hour for several hours, you feel dizzy or lightheaded, pass out, have chest pain, shortness of air, or any other new, concerning, or worsening symptoms. All discharge instructions reviewed with patient and/or family. Voiced understanding. DIXON ZHU SCALP TREATMENT OPERATOR Oct 15, 2022 16:57
[2022-10-15 16:59] LABS: BASOPHILS # (AUTO) 0.1 10^3/uL (0.0-0.1); BASOPHILS % (AUTO) 1 % (0-10); EOSINOPHILS # (AUTO) 0.1 10^3/uL (0.0-0.3); EOSINOPHILS % (AUTO) 1 % (0-10); HEMATOCRIT 40 % (35-52); HEMOGLOBIN 13.4 g/dL (11.5-16.0); LYMPHOCYTES % (AUTO) 29 % (12-44); MEAN CORPUSCULAR HEMOGLOBIN 28 pg (25-34); MEAN CORPUSCULAR HGB CONC 34 g/dL (32-36); MEAN CORPUSCULAR VOLUME 82 fL (80-99); MEAN PLATELET VOLUME 10.2 fL (9.0-12.2); MONOCYTES # (AUTO) 0.7 10^3/uL (0.0-1.0); MONOCYTES % (AUTO) 7 % (0-12); NEUTROPHILS # (AUTO) 6.3 10^3/uL (1.8-7.8); NEUTROPHILS % (AUTO) 62 % (42-75); PLATELET COUNT 279 10^3/uL (130-400); WHITE BLOOD COUNT 10.2 10^3/uL (4.3-11.0)
--- NOTE | 2022-10-15 17:34 | OB Triage Report ---
Standard Progress Note Progress Notes/Assess & Plan Date Seen by a Provider: Oct 15, 2022 Time Seen by a Provider: 17:27 Expected Date of Delivery: May 18, 2023 Gestational Age in Weeks: 9 Gestational Age in Days: 4 LMP/RASHID Comment: 9w4d Progress/Assessment & Plan This 27yo presents to ER with c/o heavy vaginal bleeding. She is 9w4d EGA and was seen in the office yesterday for VB She had US that showed IUP @ 9wwith +FHR and possible subchorionic hemorrhage. Pt states that she was working from home and started to bleed heavily saturating a bath towel. Pt called the office and was instructed to go to the ER. Pt states that the bleeding has slowed from what it was. VSS AF HRRR LCTAB ABD soft NT ND normal female ext. genitalia large amount of dark red blood and clot in vagina This was removed and the os appeared closed. No active bleeding at present. TVUS done at bedside shows IUP @ 9w4d +FHR activity and subchorionic hemorrhage 1.64x0.65cm. EXT intact x4 no c/c/e/e Labs reviewed hgb 13.4 plts 279 Final Diagnosis IUP @ 9w4d Subchorionic hemorrhage Diagnosis/Problems Diagnosis/Problems (1) Subchorionic hemorrhage in first trimester Status: Acute Assessment & Plan: stable at present. will DC to home f/u on 10/17/22. Precautions d/w pt. Continue pelvic rest Qualifiers: Qualified Codes: O41.8X10 - Other specified disorders of amniotic fluid and membranes, first trimester, not applicable or unspecified; O46.8X1 - Other antepartum hemorrhage, first trimester (2) Threatened miscarriage in early Status: Acute Assessment & Plan: stable at present. will DC to home f/u on 10/17/22. Precautions d/w pt ANGELA KWON DO Oct 15, 2022 17:34
[2022-10-15 17:38] LABS: BILIRUBIN,URINE NEGATIVE (NEGATIVE); CLARITY,URINE CLEAR; COLOR,URINE YELLOW; GLUCOSE, URINE (UA) NEGATIVE (NEGATIVE); KETONES,URINE NEGATIVE (NEGATIVE); LEUKOCYTE ESTERASE ,URINE NEGATIVE (NEGATIVE); NITRITE,URINE NEGATIVE (NEGATIVE); PH,URINE 5.5 (5-9); PROTEIN,URINE NEGATIVE (NEGATIVE)
[2022-10-15 18:01] LABS: BACTERIA,URINE TRACE /HPF
[2022-10-15 18:31] VITALS: BP 124/67
== END 2022-10-15 18:31 | disposition home or self-care (01) ==
LOC: EDUNIT# 16:29 → ER 16:30
DX: O20.8 Other hemorrhage in early pregnancy (principal); Z3A.09 9 weeks gestation of pregnancy; Z28.310 Unvaccinated for COVID-19
CPT/HCPCS: 36415; 81000; 84702; 85025; 99282

== ENCOUNTER 2022-10-21 20:13 | Observation (INO) | payer BC ==
[~2022-10-21] VITALS: Ht 170 cm; Wt 65.7 kg
--- NOTE | 2022-10-21 20:56 | ED GU-Female ---
General Chief Complaint: OB < 20 WEEKS Stated Complaint: VAGINAL BLEEDING 11 WEEKS Nursing Triage Note: Pt presents with vaginal bleeding, approx 11 weeks . Pt has hx of bleeding with , tonight she reports passing a large amount of blood around 1900, large clots present. Pt reports syncopal episode approx 10 min after. Currently blooding has slowed to approx 1 pad per hr. Source: patient, old records History of Present Illness Date Seen by Provider: Oct 21, 2022 Time Seen by Provider: 20:42 Initial Comments PT ARRIVES VIA POV FROM HOME PT STATES "I HAVE A SUBCHORIONIC HEMORRHAGE" STATES SHE IS , WITH LMP 07/02/22, "BUT I MEASURED AT August"--STATES SHE IS 11 WEEKS SHE HAS BEEN HAVING BLEEDING SINCE 09/26/22. SHE HAS BEEN SEEN MULTIPLE TIMES FOR THIS SHE WAS SEEN HERE 09/26/22 AND AGAIN 10/15/22 SHE HAS BEEN SEEN BY DR. STEIN LAST Thursday10/14/22 AND AGAIN ON Thursday10/17/22, NEXT APPOINTMENT IS 11/07/22 SHE STATES THE BLEEDING HAS BEEN WORSE TODAY, AND ESPECIALLY SINCE 1900 TONIGHT STATES SHE HAS NOT USED ANY PADS AT ALL TODAY--STATES "I HAVE JUST BEEN USING TOWELS" "I'VE LOST AT LEAST 4 QUARTS OF BLOOD" STATES SHE "PASSED OUT A LITTLE" TONIGHT. STATES SHE WAS LAYING DOWN IN THE SHOWER, BUT DID NOT HAVE THE WATER ON, AND SHE "GOT HOT, HER LIMBS WENT NUMB AND HER VISION GOT BLURRY" AND S.O. TURNED ON THE WATER AND SHE IMMEDIATELY "WOKE UP" SHE HAS BEEN HAVING CRAMPING SINCE THE BLEEDING STARTED. SHE HAS NOT ATTEMPTED TO CONTACT DR. STEIN TODAY. PT IS NOT ON ASPIRIN OR BLOOD THINNERS PT IS AB 0. DELIVERED AT 25 WEEKS VIA FOR PLACENTAL ABRUPTION 03/13/2018 PCP: KATHY DANIEL CHILDREN'S TUTOR: DR. STEIN Allergies and Home Medications Allergies Coded Allergies: No Known Drug Allergies (Unverified , 03/13/18) Patient Home Medication List Home Medication List Reviewed: Yes Ondansetron (Ondansetron Odt) 4 Mg Tab.rapdis, 4 MG SL Q6H PRN for NAUSEA/VOMITING Prescribed by: OLE ALEGRIA on 09/26/22 1124 Last Action: Reviewed Vit W-Ca,Fe,FA(<1 mg) ( Vitamins) 1 Each Tablet, 1 EACH PO DAILY, (Reported) Entered as Reported by: CHHAYA SMITH on 03/13/18113 Last Action: Reviewed Discontinued Medications Docusate Sodium (Docusate Sodium) 100 Mg Capsule, 100 MG PO BID PRN for CONSTIPATION-1ST LINE Discontinued Reason: No Longer Taking Prescribed by: SHIRA STEIN on 03/13/18312 Last Action: Reviewed Hydrocodone Bit/Acetaminophen (Lortab 5 Mg Tablet) 1 Tab Tab, 1-2 TAB PO Q4H PRN for PAIN-MODERATE Discontinued Reason: No Longer Taking Prescribed by: SHIRA STEIN on 03/13/18312 Last Action: Reviewed Ibuprofen (Ibu) 600 Mg Tablet, 600 MG PO Q6H Prescribed by: SHIRA STEIN on 03/13/18312 Last Action: Discontinued Review of Systems Review of Systems Constitutional: see HPI, dizziness, malaise, weakness EENTM: no symptoms reported Respiratory: no symptoms reported; No short of breath Cardiovascular: see HPI; No chest pain; syncope Gastrointestinal: see HPI Genitourinary: see HPI Expected Date of Delivery: Apr 24, 2023 Musculoskeletal: no symptoms reported Skin: no symptoms reported Psychiatric/Neurological: See HPI Endocrine: No Symptoms Reported Hematologic/Lymphatic: See HPI Past Zjvxsyd-Xeaxfz-Xflehm Hx Patient Social History Tobacco Use?: No Smoking Status: Never a Smoker Smokeless Tobacco Frequency: Never a User Use of E-Cig and/or Vaping dev: No Use of E-Cig and/or Vaping Andres: Never a User Substance use?: No Alcohol Use?: No Pt feels they are or have been: No Past Medical History Surgery/Hospitalization HX: Expected Date of Delivery: Apr 24, 2023 Last Menstrual Period: Aug 09, 2022 Physical Exam Vital Signs Vital Signs - First Documented 10/21/22 20:25 Temp 36.8 Pulse 100 Resp 18 B/P (MAP) 119/75 (90) Capillary Refill : Less Than 3 Seconds Height, Weight, BMI Height: 5'7.00" Weight: 173lbs. 0.0oz. [id number]; 22.00 BMI Method: General Appearance: WD/WN, no apparent distress HEENT: No pale conjunctivae (R), No pale conjunctivae (L) Neck: normal inspection Cardiovascular: normal peripheral pulses, regular rate, rhythm, no murmur Respiratory: normal breath sounds, no respiratory distress, no accessory muscle use Gastrointestinal: soft, tenderness (SUPRAPUBIC TENDERNESS) Pelvic: other (PT CURRENTLY ACTIVELY BLEEDING AND PASSING LARGE CLOTS DURING EXAM, BLOOD AND CLOTS REMOVED FROM VAGINA, AND BLEEING HAS SLOWED AT THIS TIME, BUT THERE APPEARS TO BE A CLOT AT THE CERVICAL OS, UNABLE TO MANUALLY EXTRACT AT THIS TIME. CERVIX IS DILATED AT 1 CM. ESTIMATED BLOOD LOSS AT TIME OF EXAM APPROXIMATELY 500 ML. ) Back: normal inspection Extremities: normal inspection Neurologic/Psychiatric: line dancer II-XII nml as tested, no motor/sensory deficits, alert, normal mood/affect, oriented x 3 Skin: normal color, warm/dry Progress/Results/Core Measures Suspected Sepsis SIRS Temperature: Pulse: 100 Respiratory Rate: 18 Laboratory Tests 10/21/22 21:07: White Blood Count 10.6 10/22/22 00:05: White Blood Count 10.3 Blood Pressure 119 /75 Mean: 90 Laboratory Tests 10/21/22 21:07: Creatinine 0.66, INR Comment 1.0, Platelet Count 250 10/22/22 00:05: Platelet Count 257 Results/Orders Lab Results Laboratory Tests Test 10/21/22 21:07 10/22/22 00:05 10/22/22 03:50 10/22/22 08:38 Range/Units White Blood Count 10.6 10.3 4.3-11.0 10^3/uL Red Blood Count 4.06 3.79 L 3.80-5.11 10^6/uL Hemoglobin 11.3 L 10.6 L 9.9 L 8.6 L 11.5-16.0 g/dL Hematocrit 33 L 30 L 28 L 25 L 35-52 % Mean Corpuscular Volume 81 80 80-99 fL Mean Corpuscular Hemoglobin 28 28 25-34 pg Mean Corpuscular Hemoglobin Concent 35 35 32-36 g/dL Red Cell Distribution Width 13.3 13.4 10.0-14.5 % Platelet Count 250 257 130-400 10^3/uL Mean Platelet Volume 10.2 10.3 9.0-12.2 fL Immature Granulocyte % (Auto) 0 % Neutrophils (%) (Auto) 86 H 42-75 % Lymphocytes (%) (Auto) 7 L 12-44 % Monocytes (%) (Auto) 5 0-12 % Eosinophils (%) (Auto) 0 0-10 % Basophils (%) (Auto) 0 0-10 % Neutrophils # (Auto) 9.2 H 1.8-7.8 10^3/uL Lymphocytes # (Auto) 0.8 L 1.0-4.0 10^3/uL Monocytes # (Auto) 0.6 0.0-1.0 10^3/uL Eosinophils # (Auto) 0.0 0.0-0.3 10^3/uL Basophils # (Auto) 0.0 0.0-0.1 10^3/uL Immature Granulocyte # (Auto) 0.0 0.0-0.1 10^3/uL Neutrophils % (Manual) 76 % Lymphocytes % (Manual) 5 % Monocytes % (Manual) 1 % Band Neutrophils 18 % Prothrombin Time 13.3 12.2-14.7 SEC INR Comment 1.0 0.8-1.4 Activated Partial Thromboplast Time 31 24-35 SEC Sodium Level 137 135-145 MMOL/L Potassium Level 3.7 3.6-5.0 MMOL/L Chloride Level 105 98-107 MMOL/L Carbon Dioxide Level 21 21-32 MMOL/L Anion Gap 11 5-14 MMOL/L Blood Urea Nitrogen 7 7-18 MG/DL Creatinine 0.66 0.60-1.30 MG/DL Estimat Glomerular Filtration Rate 124 BUN/Creatinine Ratio 11 Glucose Level 102 70-105 MG/DL Calcium Level 9.2 8.5-10.1 MG/DL Human Chorionic Gonadotropin, Quant 12743 H <5 MIU/ML My Orders Orders - AUSTIN RAMOS DO Hcg,Quantitative (10/21/22 20:42) Type And Screen (10/21/22 20:42) Ed Iv/Invasive Line Start (10/21/22 20:48) Ns Iv 1000 Ml (Sodium Chloride 0.9%) (10/21/22 21:00) Basic Metabolic Panel (10/21/22 20:48) Cbc With Automated Diff (10/21/22 20:48) Protime With Inr (10/21/22 20:48) Partial Thromboplastin Time (10/21/22 20:48) Orthostatic Vital Signs (Adult (10/21/22 20:59) Manual Differential (10/21/22 21:07) Ed Iv/Invasive Line Start (10/21/22 23:50) Ns Iv 1000 Ml (Sodium Chloride 0.9%) (10/22/22 00:00) Cbc No Diff (10/22/22 00:05) Fentanyl Inj (Sublimaze Injection) (10/22/22 00:19) Vital Signs/I&O 10/22/22 10/22/22 10/22/22 09:00 12:15 12:35 Temp 37.3 37.2 37.2 Pulse 76 86 86 Resp 18 18 18 B/P (MAP) 112/69 (83) 126/82 (97) 126/82 Pulse Ox 99 100 100 O2 Delivery Room Air Room Air Room Air 10/22/22 00:00 Intake Total 1000 ml Balance 1000 ml Capillary Refill : Less Than 3 Seconds Blood Pressure Mean: 90 Progress Note : Progress Note BLOOD TYPE IS O + VITALS ON ARRIVAL: TEMP 36.8, BP 119/75, HR 100, RR 18, O2 SAT 98% ON ROOM AIR ORTHOSTATIC VITALS: LYING: BP 101/53, HR 74 SITTING: BP 107/60, HR 81 STANDING: BP 112/65, HR 95 PT SLIGHTLY DIZZY ON STANDING. VITALS AT TIME OF ADMIT: BP 110'S/60'S, HR 70'S, O2 SAT 98% ON ROOM AIR GIVEN: -IV FLUIDS -FENTANYL FOR PAIN LABS INCLUDING CBC, BMP, QUANT BHCG, PT/PTT/INR ORDERED INITIAL HGB 11.3, REPEAT HGB 10.6 HGB ON 10/15/22 WAS 13.4 NO DETERIORATION IN PT'S CONDITION DURING ER STAY PT CONTINUES TO BLEED AND PASS CLOTS THROUGHOUT ER STAY--ESTIMATE PT HAS LOST AT LEAST 1000 ML OF BLOOD DURING ER STAY FROM TIME OF ARRIVAL. DISCUSSED TEST RESULTS, NEED FOR ADMIT AND PT IS AGREEABLE TO PLAN REVIEWED PRIOR RECORDS, ER VISITS, ADMITS/H&P'S/CONSULTS/DISCHARGE SUMMARIES, TESTS/PROCEDURES Departure Communication (Admissions) 0015--SPOKE WITH DR. KWON, CHILDREN'S TUTOR [employer]. ACCEPTS PT FOR ADMIT. Impression Primary Impression: Threatened in first trimester Additional Impressions: Acute blood loss anemia Subchorionic hemorrhage in first trimester Qualified Codes: O41.8X10 - Other specified disorders of amniotic fluid and membranes, first trimester, not applicable or unspecified; O46.8X1 - Other antepartum hemorrhage, first trimester Disposition: ADMITTED INPATIENT Condition: Stable Admissions Decision to Admit Reason: Admit from ER (General) Decision to Admit/Date: Oct 22, 2022 Time/Decision to Admit Time: 00:15 Departure-Patient Inst. Referrals: OLY DANIEL APRN (PCP) Primary Care Physician SHIRA STEIN DO (Family) Primary Care Physician AUSTIN RAMOS DO Oct 21, 2022 20:56
[2022-10-21] MEDS ORDERED: NS IV 1000 ML 1,000 ML IV SCH (21:00)
[2022-10-21 21:09] VITALS: BP_SYST 101; BP_SYST 107; BP_SYST 112; BP_DIAS 53; BP_DIAS 60; BP_DIAS 65
[2022-10-21 21:12] LABS: BASOPHILS % (AUTO) 0 % (0-10); EOSINOPHILS % (AUTO) 0 % (0-10); HEMATOCRIT 33 % (35-52); HEMOGLOBIN 11.3 g/dL (11.5-16.0); LYMPHOCYTES # (AUTO) 0.8 10^3/uL (1.0-4.0); LYMPHOCYTES % (AUTO) 7 % (12-44); MEAN CORPUSCULAR HEMOGLOBIN 28 pg (25-34); MEAN CORPUSCULAR HGB CONC 35 g/dL (32-36); MEAN CORPUSCULAR VOLUME 81 fL (80-99); MEAN PLATELET VOLUME 10.2 fL (9.0-12.2); MONOCYTES # (AUTO) 0.6 10^3/uL (0.0-1.0); MONOCYTES % (AUTO) 5 % (0-12); NEUTROPHILS # (AUTO) 9.2 10^3/uL (1.8-7.8); NEUTROPHILS % (AUTO) 86 % (42-75); PLATELET COUNT 250 10^3/uL (130-400); WHITE BLOOD COUNT 10.6 10^3/uL (4.3-11.0)
[2022-10-21 21:25] LABS: POTASSIUM 3.7 MMOL/L (3.6-5.0); PROTHROMBIN TIME PATIENT 13.3 SEC (12.2-14.7)
[2022-10-21 21:26] LABS: CALCIUM 9.2 MG/DL (8.5-10.1)
[2022-10-21 21:29] LABS: BAND NEUTROPHILS 18 %; LYMPHOCYTES % (MANUAL) 5 %; MONOCYTES % (MANUAL) 1 %; NEUTROPHILS % (MANUAL) 76 %
[2022-10-21 21:31] LABS: CREATININE SERUM 0.66 MG/DL (0.60-1.30)
[2022-10-21] MEDS: NS IV 1000 ML 1,000 ML IV SCH (23:59)
[2022-10-22 00:18] LABS: HEMATOCRIT 30 % (35-52); HEMOGLOBIN 10.6 g/dL (11.5-16.0); MEAN CORPUSCULAR HEMOGLOBIN 28 pg (25-34); MEAN CORPUSCULAR HGB CONC 35 g/dL (32-36); MEAN CORPUSCULAR VOLUME 80 fL (80-99); MEAN PLATELET VOLUME 10.3 fL (9.0-12.2); PLATELET COUNT 257 10^3/uL (130-400); WHITE BLOOD COUNT 10.3 10^3/uL (4.3-11.0)
[2022-10-22] MEDS ORDERED: fentaNYL INJ 100 MCG/2 ML AMP IVP STA (00:19)
[2022-10-22 01:30] VITALS: BP 98/55
[2022-10-22] MEDS ORDERED: fentaNYL INJ 100 MCG/2 ML AMP IVP PRN (01:30)
[2022-10-22] MEDS ORDERED: ONDANSETRON 4 MG/2 ML (SDV) Z0FRAN IVP PRN (01:30)
[2022-10-22] MEDS: NS IV 1000 ML 1,000 ML IV SCH ×3 (01:46→08:02)
[2022-10-22 03:58] VITALS: BP 122/78
[2022-10-22 04:07] LABS: HEMOGLOBIN 9.9 g/dL (11.5-16.0)
--- NOTE | 2022-10-22 08:37 | History & Physical-OB/GYN ---
History of Present Illness History of Present Illness Reason for visit/HPI Vaginal bleeding This is a 27-year-old G2, P1 presents to labor and delivery at 11 weeks 1 day EGA with complaint of vaginal bleeding. She was seen in the emergency room and had had a large amount of bleeding. Her hemoglobin dropped from 13-10. She is feeling a little lightheaded. Patient has a known history of a subchorionic hemorrhage and has had bleeding throughout her first trimester. Patient is taking Prometrium daily. Patient denies any cramping fever chills shortness of air chest pressure. Date of Admission Oct 22, 2022 at 00:38 Time Seen by a Provider: 07:45 I consulted on this patient on 10/22/22 08:32 Attending Physician Daina Kitchen DO Admitting Physician Admitting Physician: Daina Kitchen DO Attending Physician: Daina Kitchen DO Consult Allergies and Home Medications Allergies Coded Allergies: No Known Drug Allergies (Unverified , 03/13/18) Patient Home Medication List Home Medication List Reviewed: Yes Docusate Sodium (Docusate Sodium) 100 Mg Capsule, 100 MG PO BID PRN for CONSTIPATION-1ST LINE Prescribed by: SHIRA STEIN on 03/13/18312 Last Action: Reviewed Hydrocodone Bit/Acetaminophen (Lortab 5 Mg Tablet) 1 Tab Tab, 1-2 TAB PO Q4H PRN for PAIN-MODERATE Prescribed by: SHIRA STEIN on 03/13/18312 Last Action: Reviewed Ondansetron (Ondansetron Odt) 4 Mg Tab.rapdis, 4 MG SL Q6H PRN for NAUSE A/VOMITING Prescribed by: OLE ALEGRIA on 09/26/22 1124 Last Action: Reviewed Vit W-Ca,Fe,FA(<1 mg) ( Vitamins) 1 Each Tablet, 1 EACH PO DAILY, (Reported) Entered as Reported by: CHHAYA SMITH on 03/13/18 0114 Last Action: Reviewed Discontinued Medications Ibuprofen (Ibu) 600 Mg Tablet, 600 MG PO Q6H Prescribed by: SHIRA STEIN on 03/13/18312 Last Action: Discontinued Past Oavcllt-Webkbj-Sbqzet Hx Patient Social History Marrital Status: Number of Children: 1 Smoking Status: Never a Smoker Alcohol Use?: No Pt feels they are or have been: No Immunizations Up To Date Date of Influenza Vaccine: Feb 08, 2018 Surgeries Section Respiratory No Cardiovascular No Neurological No Reproductive System : Yes Expected Date of Delivery: Apr 24, 2023 Last Menstrual Period: Aug 09, 2022 Hx : 2 Hx Para: 1 Hx Reproductive Disorders: Yes (Cervical incompetence) Genitourinary No Gastrointestinal No Musculoskeletal No Endocrine History of Endocrine Disorders: No Are Your Blood Sugars Over 250: No HEENT History of HEENT Disorders: No Cancer No Psychosocial History of Psychiatric Problem: No Integumentary History of Skin or Integumenta: No Blood Transfusions History of Blood Disorders: No Reviewed Nursing Assessment Reviewed/Agree w Nursing PMH: No Review of Systems Constitutional: see HPI EENTM: see HPI Respiratory: see HPI Cardiovascular: see HPI Gastrointestinal: see HPI Genitourinary: see HPI Musculoskeletal: see HPI Skin: see HPI Psychiatric/Neurological: No Symptoms Reported, See HPI Physical Exam Physical Exam Vital Signs Vital Signs Date Time Temp Pulse Resp B/P (MAP) Pulse Ox O2 Delivery O2 Flow Rate FiO2 10/22/22 03:58 36.4 86 18 122/78 (93) 100 Room Air 10/22/22 01:30 36.9 68 18 98/55 (69) 98 Room Air 10/22/22 01:30 36.9 68 18 98 Room Air 10/21/22 21:09 74 101/53 (69) 81 107/60 (76) 93 112/65 (81) 10/21/22 20:25 36.8 100 18 119/75 (90) I & O 10/22/22 07:00 Intake Total 1000 ml Balance 1000 ml Capillary Refill : Less Than 3 Seconds Labs Laboratory Tests 10/21/22 21:07: White Blood Count 10.6, Red Blood Count 4.06, Hemoglobin 11.3L, Hematocrit 33L, Mean Corpuscular Volume 81, Mean Corpuscular Hemoglobin 28, Mean Corpuscular Hemoglobin Concent 35, Red Cell Distribution Width 13.3, Platelet Count 250, Mean Platelet Volume 10.2, Immature Granulocyte % (Auto) 0, Neutrophils (%) (Auto) 86H, Lymphocytes (%) (Auto) 7L, Monocytes (%) (Auto) 5, Eosinophils (%) (Auto) 0, Basophils (%) (Auto) 0, Neutrophils # (Auto) 9.2H, Lymphocytes # (A uto) 0.8L, Monocytes # (Auto) 0.6, Eosinophils # (Auto) 0.0, Basophils # (Auto) 0.0, Immature Granulocyte # (Auto) 0.0, Neutrophils % (Manual) 76, Lymphocytes % (Manual) 5, Monocytes % (Manual) 1, Band Neutrophils 18, Prothrombin Time 13.3, INR Comment 1.0, Activated Partial Thromboplast Time 31, Sodium Level 137, Potassium Level 3.7, Chloride Level 105, Carbon Dioxide Level 21, Anion Gap 11, Blood Urea Nitrogen 7, Creatinine 0.66, Estimat Glomerular Filtration Rate 124, BUN/Creatinine Ratio 11, Glucose Level 102, Calcium Level 9.2, Human Chorionic Gonadotropin, Quant [id number] 10/22/22 00:05: White Blood Count 10.3, Red Blood Count 3.79L, Hemoglobin 10.6L, Hematocrit 30L, Mean Corpuscular Volume 80, Mean Corpuscular Hemoglobin 28, Mean Corpuscular Hemoglobin Concent 35, Red Cell Distribution Width 13.4, Platelet Count 257, Mean Platelet Volume 10.3 10/22/22 03:50: Hemoglobin 9.9L, Hematocrit 28L General Appearance: No Apparent Distress, WD/WN Respiratory: Chest Non Tender, Lungs Clear, Normal Breath Sounds, No Accessory Muscle Use, No Respiratory Distress Cardiovascular: Regular Rate, Rhythm, No Edema, No Murmur, Normal Peripheral Pulses Abdominal: normal bowel sounds, non tender, soft, no organomegaly Labia: Bilateral, WNL Vagina: WNL Cervix: WNL (Small amount of blood at the cervical os. No active bleeding. Os is closed) Uterus: WNL ( heart tones 171 bpm), Other (Ultrasound reviewed with radiologist. IUP at 11 weeks + FHR and subchorionic hemorrhage.) Pelvic Exam: normal external exam, normal adnexa, no cerv. motion tender, no masses Extremity: Normal Capillary Refill, Normal Inspection, Normal Range of Motion, No Pedal Edema Assessment/Plan Assessment and Plan Problems: (1) Subchorionic hemorrhage in first trimester Status: Acute Qualifiers: Qualified Codes: O41.8X10 - Other specified disorders of amniotic fluid and membranes, first trimester, not applicable or unspecified; O46.8X1 - Other antepartum hemorrhage, first trimester Assessment & Plan: Patient stable at this time no active bleeding presently. Will DC to home we will have patient follow-up with her next appointment. We will also have patient take vitamins and ferrous sulfate 325 twice daily (2) Threatened miscarriage in early Status: Acute Assessment & Plan: FHR +. We will continue to monitor Admission Diagnosis Admission Status: Observation Copy Copies To 1: SHIRA STEIN VICTORIA A DO Oct 22, 2022 08:37
--- NOTE | 2022-10-22 08:38 | Diagnostic Imaging Report ---
TECHNIQUE: Live grayscale and color Doppler ultrasound was performed over gravid uterus transabdominally and endovaginally. REASON FOR EXAM: Vaginal bleeding. COMPARISON: 09/26/2022. FINDINGS: A single live intrauterine gestation is present with a CRL of 4.2 cm. This corresponds with an estimated gestational age of 11 weeks 1 days and RASHID of 05/12/2023. heart rate is 169 bpm. A yolk sac is present. The gestational sac has a normal size and contours. There is a heterogeneous collection along the posterior aspect of the gestational sac measuring 4.6 x 4.3 x 3.8 cm and along the portion of the gestational sac nearest to the lower uterine segment measuring 1.6 x 2.2 x 3.8 cm. A formal anatomic survey was not performed. No gross abnormalities are present. The bilateral ovaries are well visualized and have a normal appearance. No adnexal mass. There is a small amount of free fluid within the posterior cul-de-sac. IMPRESSION: 1. Single live intrauterine gestation with EGA of 11 weeks, 1 days and estimated due date of 05/12/2023. These are within range with clinical dates. 2. Heterogeneous areas adjacent to the gestational sac, suspicious for areas of subchorionic hemorrhage. This abuts approximately 25-50% of the gestational sac. Recommend continued close follow-up. 3. Small amount of free fluid in the pelvis. Dictated by: Dictated on workstation # [id number]
--- NOTE | 2022-10-22 08:42 | Discharge Summary ---
Discharge Summary Hospital Course Problems Reviewed?: Yes Problems/Diagnosis: (1) Subchorionic hemorrhage in first trimester Status: Acute Assessment & Plan: Patient stable at this time no active bleeding presently. Will DC to home we will have patient follow-up with her next appointment. We will also have patient take vitamins and ferrous sulfate 325 twice daily Qualifiers: Qualified Codes: O41.8X10 - Other specified disorders of amniotic fluid and membranes, first trimester, not applicable or unspecified; O46.8X1 - Other antepartum hemorrhage, first trimester (2) Threatened miscarriage in early Status: Acute Assessment & Plan: FHR +. We will continue to monitor Hospital Course Date of Admission: Oct 22, 2022 at 00:38 Admission Diagnosis : Family Physician/Provider: Brenda Rizvi Aprn Date of Discharge: 10/22/22 Discharge Diagnosis: [ ] Hospital Course: [ ] Labs and Pending Lab Test: Laboratory Tests 10/21/22 21:07: White Blood Count 10.6, Red Blood Count 4.06, Hemoglobin 11.3L, Hematocrit 33L, Mean Corpuscular Volume 81, Mean Corpuscular Hemoglobin 28, Mean Corpuscular Hemoglobin Concent 35, Red Cell Distribution Width 13.3, Platelet Count 250, Mean Platelet Volume 10.2, Immature Granulocyte % (Auto) 0, Neutrophils (%) (Auto) 86H, Lymphocytes (%) (Auto) 7L, Monocytes (%) (Auto) 5, Eosinophils (%) (Auto) 0, Basophils (%) (Auto) 0, Neutrophils # (Auto) 9.2H, Lymphocytes # (Auto) 0.8L, Monocytes # (Auto) 0.6, Eosinophils # (Auto) 0.0, Basophils # (Auto) 0.0, Immature Granulocyte # (Auto) 0.0, Neutrophils % (Manual) 76, Lymphocytes % (Manual) 5, Monocytes % (Manual) 1, Band Neutrophils 18, Prothrombin Time 13.3, INR Comment 1.0, Activated Partial Thromboplast Time 31, Sodium Level 137, Potassium Level 3.7, Chloride Level 105, Carbon Dioxide Level 21, Anion Gap 11, Blood Urea Nitrogen 7, Creatinine 0.66, Estimat Glomerular Filtration Rate 124, BUN/Creatinine Ratio 11, Glucose Level 102, Calcium Level 9.2, Human Chorionic Gonadotropin, Quant [id number] 10/22/22 00:05: White Blood Count 10.3, Red Blood Count 3.79L, Hemoglobin 10.6L, Hematocrit 30L, Mean Corpuscular Volume 80, Mean Corpuscular Hemoglobin 28, Mean Corpuscular Hemoglobin Concent 35, Red Cell Distribution Width 13.4, Platelet Count 257, Mean Platelet Volume 10.3 10/22/22 03:50: Hemoglobin 9.9L, Hematocrit 28L Home Meds Active Ondansetron Odt (Ondansetron) 4 Mg Tab.rapdis 4 Mg SL Q6H PRN not to exceed 3 tablets in a day Docusate Sodium 100 Mg Capsule 100 Mg PO BID PRN Lortab 5 Mg Tablet (Acetaminophen/Hydrocodone Bitart) 1 Tab Tab 1-2 Tab PO Q4H PRN Reported Vitamins ( Vit W-Ca,Fe,FA(<1 mg)) 1 Each Tablet 1 Each PO DAILY Activity: Bedrest Driving Instructions: You May Drive NO SMOKING: NO SMOKING Nothing Inside Vagina: No Douching, No [place], No Tampons Discharge Diet: Regular Diet Symptoms to Report to : Vaginal Bleeding Increase For Any Problems or Questions: Contact Your Physician Discharge Physical Examination Allergies: Coded Allergies: No Known Drug Allergies (Unverified , 03/13/18) Vitals & I&Os Vital Signs Date Time Temp Pulse Resp B/P (MAP) Pulse Ox O2 Delivery O2 Flow Rate FiO2 10/22/22 03:58 36.4 86 18 122/78 (93) 100 Room Air Discharge Summary Date of Admission Oct 22, 2022 at 00:38 Date of Discharge Discharge Diagnosis (1) Subchorionic hemorrhage in first trimester Status: Acute Assessment & Plan: Patient stable at this time no active bleeding presently. Will DC to home we will have patient follow-up with her next appointment. We will also have patient take vitamins and ferrous sulfate 325 twice daily Qualifiers: Qualified Codes: O41.8X10 - Other specified disorders of amniotic fluid and membranes, first trimester, not applicable or unspecified; O46.8X1 - Other antepartum hemorrhage, first trimester (2) Threatened miscarriage in early Status: Acute Assessment & Plan: FHR +. We will continue to monitor Supervisory-Addendum Brief Verification & Attestation Participated in pt care: history, MDM, physical Personally performed: exam, history, MDM, supervision of care Care discussed with: other (NA) Procedures: n/a Results interpretation: Verified all documentation I personally examined this patient. ANGELA KWON DO Oct 22, 2022 08:41
[2022-10-22 09:00] VITALS: BP 112/69
[2022-10-22 09:01] LABS: HEMOGLOBIN 8.6 g/dL (11.5-16.0)
[2022-10-22] MEDS ORDERED: ACETAMINOPHEN 500 MG TAB (TYLENOL) PO NR (09:30)
[2022-10-22 12:15] VITALS: BP 126/82
[2022-10-22 12:35] VITALS: BP 126/82
== END 2022-10-22 12:35 | disposition home or self-care (01) ==
LOC: EDUNIT# 20:13 → ER 20:15 → WS 10-22 00:38
PROVIDERS: ADMIT Obstetrics & Gynecology; ATTEND Obstetrics & Gynecology
DX: O41.8X10 Other specified disorders of amniotic fluid and membranes, first trimester, not applicable or unspecified (principal); O46.8X1 Other antepartum hemorrhage, first trimester; Z3A.11 11 weeks gestation of pregnancy
CPT/HCPCS: 76801; 76817; 80048; 84702; 85007; 85014; 85018; 85027 ×2; 85610; 85730; 86850; 86900; 86901; 99284; G0378; 36415; 96361; 96375; 96376

== ENCOUNTER 2022-11-18 05:35 | Outpatient (CLI) | payer BC ==
[~2022-11-18] VITALS: Ht 170.2 cm; Wt 65.7 kg
== END 2022-11-18 15:36 ==
LOC: PREOP 05:35
PROVIDERS: ATTEND Obstetrics & Gynecology
DX: Z01.818 Encounter for other preprocedural examination (principal); N88.3 Incompetence of cervix uteri

== ENCOUNTER 2022-11-25 09:55 | Day surgery (SDC) | payer BC ==
[2022-11-25] VITALS (12 sets, daily range): BP systolic 102–115; BP diastolic 56–79
[~2022-11-25] VITALS: Ht 170.2 cm; Wt 65.7 kg
[2022-11-25] MEDS: LACTATED RINGERS 1,000 ML IV PRN ×2 (10:33→11:19)
[2022-11-25 10:41] LABS: BASOPHILS % (AUTO) 1 % (0-10); EOSINOPHILS # (AUTO) 0.1 10^3/uL (0.0-0.3); EOSINOPHILS % (AUTO) 1 % (0-10); HEMATOCRIT 27 % (35-52); HEMOGLOBIN 8.7 g/dL (11.5-16.0); LYMPHOCYTES # (AUTO) 1.5 10^3/uL (1.0-4.0); LYMPHOCYTES % (AUTO) 26 % (12-44); MEAN CORPUSCULAR HEMOGLOBIN 25 pg (25-34); MEAN CORPUSCULAR HGB CONC 32 g/dL (32-36); MEAN CORPUSCULAR VOLUME 78 fL (80-99); MEAN PLATELET VOLUME 9.8 fL (9.0-12.2); MONOCYTES # (AUTO) 0.4 10^3/uL (0.0-1.0); MONOCYTES % (AUTO) 7 % (0-12); NEUTROPHILS # (AUTO) 3.7 10^3/uL (1.8-7.8); NEUTROPHILS % (AUTO) 64 % (42-75); PLATELET COUNT 286 10^3/uL (130-400); WHITE BLOOD COUNT 5.7 10^3/uL (4.3-11.0)
--- NOTE | 2022-11-25 11:18 | History & Physical-Surgical ---
HPO-Surgical History of Present Illness Chief Complaint: Cervical insufficency Diagnosis/Surgical Indication: CERVICAL INCOMPITENCE Procedure: LOPEZ CIRCLAGE Date of Surgery: Nov 25, 2022 Weight (Pounds): 173 Weight (Ounces): 0.0 Height (Feet): 5 Height (Inches): 7.00 Allergies and Home Medications Allergies Coded Allergies: No Known Drug Allergies (Unverified , 11/18/22) Patient Home Medication List Home Medication List Reviewed: Yes Vit W-Ca,Fe,FA(<1 mg) ( Vitamins) 1 Each Tablet, 1 EACH PO DAILY, (Reported) Entered as Reported by: CHHAYA SMITH on 03/13/18 0114 Discontinued Medications Ondansetron (Ondansetron Odt) 4 Mg Tab.rapdis, 4 MG SL Q6H PRN for NAUSEA/VOMITING Discontinued Reason: No Longer Taking Prescribed by: OLE ALEGRIA on 09/26/22 1124 Past Mgkhtfn-Gsdliq-Uumnzh Hx Patient Social History Smoking Status: Never a Smoker 2nd Hand Smoke Exposure: No Recent Hopitalizations: Yes (10/21/22-10/22/22 VIA BRIAN, VAGINAL BLEEDING) Immunizations Up To Date Tetanus Booster (TDap): Less than 5yrs Date of Influenza Vaccine: Feb 08, 2018 Seasonal Allergies Seasonal Allergies: No Surgeries Yes (DENTAL SURGERY) Section Respiratory No Cardiovascular Yes Heart Murmur Neurological No Reproductive System Hx Reproductive Disorders: Yes (Cervical incompetence) Sexually Transmitted Disease: No Genitourinary No Gastrointestinal No Musculoskeletal No Endocrine History of Endocrine Disorders: No HEENT History of HEENT Disorders: No Loss of Vision: Denies Hearing Impairment: Denies Cancer No Psychosocial History of Psychiatric Problem: No Integumentary History of Skin or Integumenta: No Blood Transfusions History of Blood Disorders: No Exam Vital Signs Vital Signs 11/25/22 10:05 Temp 36.6 Pulse 75 Resp 16 B/P (MAP) 102/72 (82) Pulse Ox 99 O2 Delivery Room Air Capillary Refill : Labs Laboratory Tests Test 11/25/22 10:08 Range/Units White Blood Count 5.7 4.3-11.0 10^3/uL Red Blood Count 3.47 L 3.80-5.11 10^6/uL Hemoglobin 8.7 L 11.5-16.0 g/dL Hematocrit 27 L 35-52 % Mean Corpuscular Volume 78 L 80-99 fL Mean Corpuscular Hemoglobin 25 25-34 pg Mean Corpuscular Hemoglobin Concent 32 32-36 g/dL Red Cell Distribution Width 13.0 10.0-14.5 % Platelet Count 286 130-400 10^3/uL Mean Platelet Volume 9.8 9.0-12.2 fL Immature Granulocyte % (Auto) 1 % Neutrophils (%) (Auto) 64 42-75 % Lymphocytes (%) (Auto) 26 12-44 % Monocytes (%) (Auto) 7 0-12 % Eosinophils (%) (Auto) 1 0-10 % Basophils (%) (Auto) 1 0-10 % Neutrophils # (Auto) 3.7 1.8-7.8 10^3/uL Lymphocytes # (Auto) 1.5 1.0-4.0 10^3/uL Monocytes # (Auto) 0.4 0.0-1.0 10^3/uL Eosinophils # (Auto) 0.1 0.0-0.3 10^3/uL Basophils # (Auto) 0.0 0.0-0.1 10^3/uL Immature Granulocyte # (Auto) 0.0 0.0-0.1 10^3/uL General Appearance: Alert, Oriented X3 HEENT: Atraumatic Respiratory: Clear to Auscultation Psych/Mental Status: Mental Status NL Assessment/Plan Assessment and Plan Diagnosis: 27 yo female at 15 weeks gestation with hx of cervical insufficiency P: Lopez Cerclage Admission Diagnosis Admission Status: Other (Same Day Surgery) SHIRA STEIN DO Nov 25, 2022 11:18
[2022-11-25] MEDS ORDERED: INDO25CA99 PO (11:22)
[2022-11-25] MEDS ORDERED: D5 LR IV SOLUTION 1,000 ML IV SCH (11:30)
[2022-11-25] MEDS ORDERED: ONDANSETRON 4 MG/2 ML (SDV) Z0FRAN IVP PRN (11:30)
[2022-11-25] MEDS ORDERED: INDOMETHACIN 25 MG (INDOCIN) CAP PO ONE (12:00)
--- NOTE | 2022-11-25 13:59 | Anesthesia-Regional Post-Op ---
Regional Patient Condition Mental Status: Alert, Oriented x3 Circulation: Same as Pre-Op Headache: Absent Sensation: Full Recovery Motor Block: Absent Post Op Complications Complications None Follow Up Care/Instructions Patient Instructions None needed. Anesthesia/Patient Condition Patient is doing well in [facility]. She is able to move both legs and toes bilaterally, still weak but only ~2 hours after SAB. She has some back discomfort, which I told her is to be expected. She has no other complaints, stable vital signs, no apparent adverse anesthesia problems. No complications reported per nursing. JOSE DE JESUS CHEATHAM DO Nov 25, 2022 13:59
--- NOTE | 2022-11-25 16:36 | OPERATIVE REPORT ---
DATE OF SERVICE: 11/25/2022 PREOPERATIVE DIAGNOSES: 1. A 27-year-old female, G2, P1 at 15 weeks gestation. 2. History of cervical insufficiency. POSTOPERATIVE DIAGNOSES: 1. A 27-year-old female, G2, P1 at 15 weeks gestation. 2. History of cervical insufficiency. PROCEDURE: Lopez cerclage. SURGEON: Shira Stein DO ANESTHESIA: Spinal. ESTIMATED BLOOD LOSS: Minimal. URINE OUTPUT: 200 mL drained at the end of the procedure. FLUIDS: 800 mL lactated Ringer solution. FINDINGS: heart tracing of 150s, both pre and postoperatively as well as normal-appearing cervix, vagina and external female genitalia. SPECIMEN SENT: None. INDICATIONS FOR PROCEDURE: This 27-year-old female is the patient who had sought care in my office with a history of cervical insufficiency and delivery at 25 weeks due to this. We discussed at her first visit proceeding with Lopez cerclage. She has already been counseled extensively about having this done with any subsequent pregnancies. Risk of procedure discussed with the patient in detail and after all of her questions were answered, she was agreeable to proceed. Consent was obtained. The patient was taken to the operating room. OPERATIVE DESCRIPTION IN DETAIL: Once in the operating room, spinal analgesia was administered and found to be adequate. She was placed in dorsal lithotomy position, prepped and draped in normal sterile fashion. A timeout was performed. A weighted speculum was inserted into the patient's vagina. Right angle retractor was utilized. Cervix was grasped at 12 o'clock position using the ring forceps. I then placed #1 Ethibond suture in a Lopez cerclage fashion, grasping all 4 quadrants of the cervix. Pursestring the suture and having the knot at 12 o'clock position. Once this was done, one pass seems to be adequate for good cervical retention. I then tie off after which there was no active bleeding noted from the cervix. I then copiously irrigated the vagina and again, no active bleeding was noted. I then removed all other instruments from the patient's vagina. The patient tolerated the procedure well and sent to recovery area in stable condition. Heart tones are 150 postoperatively. Job ID: [id number] DocumentID: [id number] Dictated Date: 11/25/2022 12:17:30 Chorus Master Date: 11/25/2022 16:35:00 Dictated By: SHIRA STEIN DO [facility]
== END 2022-11-25 17:30 | disposition home or self-care (01) ==
LOC: SDC 09:55
PROVIDERS: ATTEND Obstetrics & Gynecology
DX: O34.32 Maternal care for cervical incompetence, second trimester (principal); Z87.51 Personal history of pre-term labor
CPT/HCPCS: 36415; 85025; 86850; 86900; 86901; 87081

== ENCOUNTER 2022-11-28 13:03 | Outpatient (RCR) | payer BC ==
[~2022-11-28 13:03] MED LIST changes: +INDO25CA99 PO
[2022-11-28] MEDS ORDERED: EPINEPHrine INJECTION 1 MG/ML AMP IM PRN (13:15)
[2022-11-28] MEDS ORDERED: RT-ALBUTEROL SULF 2.5 MG/3 ML PRE-MIX VIAL IH PRN (13:15)
[2022-11-28] MEDS ORDERED: diphenhydrAMINE INJ 50 MG/ML VIAL IV PRN (13:15)
[2022-11-28 13:20] VITALS: BP 109/73
[2022-11-28] MEDS ORDERED: HYDROCORTISONE INJECTION 100 MG/2 ML VIAL IV PRN (13:30)
[2022-11-28] MEDS ORDERED: IRON DEXTRAN 25 MG/NS 6.25 ML TOTAL VOLUME IV NR ×3 (13:30)
[2022-11-28] MEDS ORDERED: IRON DEXTRAN 1,000 MG/NS 250 ML IVPB IV ONE ×2 (13:45)
== END 2022-12-08 | disposition home or self-care (01) ==
LOC: SDC 13:03
PROVIDERS: ATTEND Obstetrics & Gynecology
DX: D64.9 Anemia, unspecified (principal)
CPT/HCPCS: 96365

== ENCOUNTER → 2022-12-26 | Outpatient (CLI) | payer BC ==
--- NOTE | 2022-12-27 14:33 | Diagnostic Imaging Report ---
INDICATION: , screening ultrasound COMPARISON: None TECHNIQUE: Multiple real-time grayscale images were obtained over the gravid uterus. FINDINGS: The cervix measures 3.7 cm. There is a single live intrauterine gestation in cephalic presentation. The placenta is posterior/fundal without evidence of previa. The four-chamber heart is suboptimally seen. The right and left ventricular outflow tracks are seen. The stomach is seen. The bladder is seen. There are 2 umbilical arteries consistent with a three-vessel cord. The heart rate measures 138 BPM. The cord insertion is seen. The lower spine is seen. The upper spine is not well seen The profile is seen. The kidneys are seen. Lateral ventricles seen. The cerebellum and cisterna magna are seen. The amniotic fluid index measures 15.7 cm. Biometrical measurements are as follows: Biparietal 4.94 cm, age 21 weeks 0 days. Head circumference 18.10 cm, age 20 weeks 4 days. Abdominal circumference 14.97 cm, age 20 weeks 2 days. Femur length 3.30 cm, age 20 weeks 3 days. Sonographic estimate age: 20 weeks 4 days. Sonographic estimated date of delivery: 05/11/2023. Estimated Weight: 346 gm (+/- 51 gm). LMP percentile: 64%. heart rate: 138 beats per minute. number: 1 of 1. IMPRESSION: 1. Single live intrauterine gestation measuring at 20 weeks and 4 days which is within range of the clinical dates. 2. No abnormality seen on anatomic survey. The upper cervical spine and the four-chamber heart are suboptimally visualized. Dictated by: Dictated on workstation # [id number]
== END ==
LOC: RAD 14:54
PROVIDERS: ATTEND Obstetrics & Gynecology
DX: Z36.89 Encounter for other specified antenatal screening (principal); Z3A.20 20 weeks gestation of pregnancy
CPT/HCPCS: 76805

== ENCOUNTER 2023-02-28 09:35 | Outpatient (RCR) | payer BC ==
[2023-02-27] MEDS: BETAMETHASONE Acetate/Na Phosphate 6 MG/ML INJ IM SCH (09:29)
[2023-02-28] MEDS: BETAMETHASONE Acetate/Na Phosphate 6 MG/ML INJ IM SCH (09:48)
== END 2023-03-10 | disposition home or self-care (01) ==
LOC: WSo 09:35 → EDSTATUS 09:54
PROVIDERS: ATTEND Obstetrics & Gynecology
DX: O09.219 Supervision of pregnancy with history of pre-term labor, unspecified trimester (principal)
CPT/HCPCS: 96372

== ENCOUNTER 2023-04-16 05:30 | Outpatient (CLI) | payer BC ==
[~2023-04-16] VITALS: Ht 170.2 cm; Wt 83.2 kg
[2023-04-22] MEDS ORDERED: ACHD5005 PO (08:58)
[2023-04-22] MEDS ORDERED: IBUP-844 PO (08:58)
[2023-04-22] MEDS ORDERED: DOCU100C37 PO (08:58)
== END 2023-04-16 15:00 | disposition home or self-care (01) ==
LOC: PREOP 05:30
PROVIDERS: ATTEND Obstetrics & Gynecology
DX: Z01.818 Encounter for other preprocedural examination (principal)